=== PATIENT | female | born 1955 | race Caucasian/White ===

== ENCOUNTER → 2016-12-17 | Outpatient (CLI) | payer OTHER ==
[2016-12-17 11:55] LABS: Basophils % (A) 1 %; CH 31.4; CHCM 33.5; Eosinophils # (A) 0.1 k/uL (0-0.7); Eosinophils % (A) 1 %; HCT 38.9 % (34.0-46.0); HDW 2.53; HGB 13.3 gm/dL (11.4-16.0); Luc # (Auto) 0.08; Luc % (Auto) 2; Lymphocytes # (A) 1.1 k/uL (1.0-4.8); Lymphocytes % (A) 21 %; MCH 32.1 pg (25.0-35.0); MCHC 34.1 g/dL (31.0-37.0); MCV 93.9 fL (80.0-100.0); Mean Platelet Volume 6.9; Monocytes # (A) 0.3 k/uL (0-1.0); Monocytes % (A) 5 %; Neutrophils # (A) 3.9 k/uL (1.3-7.7); Neutrophils % (A) 71 %; RBC 4.15 m/uL (3.80-5.40); RDW 12.8 % (11.5-15.5); WBC 5.4 k/uL (3.8-10.6); WBC (Perox) 5.54
== END | disposition home or self-care (01) ==
LOC: LABWHC1 11:04
PROVIDERS: ATTEND Psychiatry & Neurology Neurology
DX: G40.209 Localization-related (focal) (partial) symptomatic epilepsy and epileptic syndromes with complex partial seizures, not intractable, without status epilepticus (principal)
CPT/HCPCS: 36415; 80164; 80185; 84450; 84460; 85025

== ENCOUNTER 2017-04-29 09:58 | Emergency (ER) | payer OTHER ==
[2017-04-29 10:08] VITALS: RESP 18
[2017-04-29] MEDS ORDERED: CEPHALEXIN 500 MG CAP PO STA (10:23)
[2017-04-29] MEDS ORDERED: SULFAMETHOX-TMP 800-160MG 1 EACH TAB PO STA (10:23)
[2017-04-29] MEDS ORDERED: IBUPROFEN 400 MG TAB PO STA (10:24)
--- NOTE | 2017-04-29 10:51 | XR ---
EXAMINATION TYPE: XR hand complete RT DATE OF EXAM: 04/29/2017 CLINICAL HISTORY: Pain with itching and rash for one day worse over fifth finger. TECHNIQUE: Frontal, lateral and oblique images of the right hand are obtained. COMPARISON: None. FINDINGS: Osseous structures are demineralized. There is no acute fracture/dislocation evident in th e right hand. The joint spaces in the right hand appear within normal limits. No suspicious cortical destruction or periosteal reaction is seen. The overlying soft tissue appears unremarkable. IMPRESSION: Demineralization otherwise unremarkable study.
--- NOTE | 2017-04-29 11:12 | ED ---
Extremity Problem HPI - General Chief complaint: Extremity Problem,Nontraumatic Stated complaint: HAND SWELLING, FEET SWELLING Time Seen by Provider: 04/29/17 10:11 Source: patient Mode of arrival: ambulatory Limitations: no limitations - History of Present Illness Initial comments: Patient complains of some redness and swelling to the right hand. She denies any specific injuries. She denies injection drug abuse. She denies any recent long plane or cards. Her symptoms have gotten worse for couple days. She is not sure if she got bit by something or perhaps scratched her hand. She has no numbness or tingling in the hand. She has no weakness of the hand. She has no lightheadedness or dizziness. She has no belly pain, back pain, chest pain, shortness of breath. She has no trouble walking. She is eating and drinking normally. She has taken no medication for the hand pain. The pain does not radiate anywhere. - Related Data Home Medications Medication Instructions Recorded Confirmed Divalproex [Depakote] 500 mg PO TID 06/01/14 04/29/17 PHENobarbital [Luminal] 32.4 mg PO HS 06/01/14 04/29/17 Phenytoin Sodium Extended 100 mg PO TID 06/01/14 04/29/17 [Dilantin] Acetaminophen Tab [Tylenol Tab] 500 mg PO Q6H PRN 04/29/17 04/29/17 Albuterol Inhaler [Ventolin Hfa 2 puff INHALATION RT-Q6H PRN 04/29/17 04/29/17 Inhaler] Previous Rx's Medication Instructions Recorded Cephalexin [Keflex] 500 mg PO Q6HR #40 cap 04/29/17 Sulfamethox-Tmp 800-160Mg [Bactrim 2 tab PO Q12HR #40 tab 04/29/17 DS 800-160 mg] Allergies Allergy/AdvReac Type Severity Reaction Status Date / Time blue dye Allergy Unknown Verified 04/29/17 10:16 latex Allergy Rash/Hives Verified 04/29/17 10:16 red dye Allergy Unknown Verified 04/29/17 10:16 codeine AdvReac Hallucinati Verified 04/29/17 10:16 ons Review of Systems ROS Statement: Those systems with pertinent positive or pertinent negative responses have been documented in the HPI. ROS Other: All systems not noted in ROS Statement are negative. Past Medical History Past Medical History: Seizure Disorder History of Any Multi-Drug Resistant Organisms: None Reported Past Surgical History: No Surgical Hx Reported Past Psychological History: No Psychological Hx Reported Smoking Status: Current every day smoker Past Alcohol Use History: None Reported Past Drug Use History: None Reported General Exam Limitations: no limitations General appearance: alert, in no apparent distress Skin exam: Present: other (Slight erythema to the right hand) Course Vital Signs 04/29/17 10:05 Temperature 97.1 F L Pulse Rate 67 Respiratory 18 Rate Blood Pressure 116/66 O2 Sat by Pulse 98 Oximetry Medical Decision Making - Medical Decision Making Patient presents with redness and swelling of the right hand. She has no anatomical snuffbox tenderness. She denies specific injuries. I did obtain x- rays, which are negative per radiology. Patient has no pain or swelling in the rest of her extremity. There is nothing to suggest a DVT. Her vital signs are within acceptable limits. I do not believe she is septic. She has minor area of erythema. I gave her 2 tablets of Bactrim DS and 500 mg Keflex by mouth. I gave her 800 mg by mouth Motrin for the discomfort. Patient is feeling better. I do not believe she requires admission to the hospital for this or further workup. She is appropriate for outpatient antibiotic therapy. I advised her to return to the emerge department immediately if her symptoms have not improved within one day, or if she notices any worsening of her symptoms at any time, or if she develops any other problems or complaints. Disposition Clinical Impression: Cellulitis Disposition: HOME SELF-CARE Condition: Good Instructions: Cellulitis (ED) Prescriptions: Cephalexin [Keflex] 500 mg PO Q6HR #40 cap Sulfamethox-Tmp 800-160Mg [Bactrim DS 800-160 mg] 2 tab PO Q12HR #40 tab Referrals: Laz Bowles MD [Primary Care Provider] - 1-2 days
[2017-04-29 11:22] VITALS: BP 110/68; PULSE 68; TEMP 97.2
== END 2017-04-29 11:20 | disposition home or self-care (01) ==
LOC: EC 09:58
DX: L03.113 Cellulitis of right upper limb (principal); G40.909 Epilepsy, unspecified, not intractable, without status epilepticus; F17.200 Nicotine dependence, unspecified, uncomplicated; Z88.5 Allergy status to narcotic agent; Z91.040 Latex allergy status; Z91.09 Other allergy status, other than to drugs and biological substances; Z79.899 Other long term (current) drug therapy
CPT/HCPCS: 99283 ×3; 96374; 96375; 36415; 80048; 80185; 85025; 85610; 85730; 80184; 73130; J1200; J2930

== ENCOUNTER 2017-04-29 18:07 | Emergency (ER) | payer OTHER ==
[2017-04-29 18:26] VITALS: BP 113/57; PULSE 64; RESP 18; TEMP 98.6
[2017-04-29] MEDS ORDERED: diphenhydrAMINE 50 MG/ML 1 ML VIAL IVP STA (18:47)
[2017-04-29] MEDS ORDERED: methylPREDNISolone SOD SUCCI 125 MG/2 ML VIAL IV STA (18:47)
[2017-04-29] MEDS ORDERED: FAMOTIDINE 20 MG/2 ML VIAL IV STA (18:47)
[2017-04-29 19:08] LABS: Basophils % (A) 0 %; CH 32.1; CHCM 34.1; Eosinophils # (A) 0.2 k/uL (0-0.7); Eosinophils % (A) 5 %; HCT 39.9 % (34.0-46.0); HDW 2.46; HGB 13.9 gm/dL (11.4-16.0); Luc # (Auto) 0.07; Luc % (Auto) 2; Lymphocytes # (A) 1.3 k/uL (1.0-4.8); Lymphocytes % (A) 37 %; MCV 94.5 fL (80.0-100.0); Mean Platelet Volume 7.2; Monocytes # (A) 0.1 k/uL (0-1.0); Monocytes % (A) 2 %; Neutrophils # (A) 1.8 k/uL (1.3-7.7); Neutrophils % (A) 54 %; RBC 4.22 m/uL (3.80-5.40); RDW 13.4 % (11.5-15.5); WBC 3.4 k/uL (3.8-10.6); WBC (Perox) 3.45
--- NOTE | 2017-04-29 19:09 | ED ---
General Adult HPI - General Chief complaint: Allergic Reaction Stated complaint: POSS ALLERGIC REACTION Time Seen by Provider: 04/29/17 18:29 Source: patient, RN notes reviewed Mode of arrival: ambulatory Limitations: no limitations - History of Present Illness Initial comments: 61-year-old female presents emergency Department chief complaint worsening rash or lower legs. Patient states that she was here earlier discharged on Bactrim and Keflex for possible cellulitis to her right hand should right hand swelling. She states she had only a few spots on her legs. Patient states that she now has diffuse red spots have progressively worsened last few hours. She states they do itch. Patient states that she's been having right-sided past. She has no known autoimmune disease. He states she's never had any history of ITP. Patient denies fever, chills. Denies any new soaps or lotions or detergents. - Related Data Home Medications Medication Instructions Recorded Confirmed Divalproex [Depakote] 500 mg PO TID 06/01/14 04/29/17 PHENobarbital [Luminal] 32.4 mg PO HS 06/01/14 04/29/17 Phenytoin Sodium Extended 100 mg PO TID 06/01/14 04/29/17 [Dilantin] Acetaminophen Tab [Tylenol Tab] 500 mg PO Q6H PRN 04/29/17 04/29/17 Albuterol Inhaler [Ventolin Hfa 2 puff INHALATION RT-Q6H PRN 04/29/17 04/29/17 Inhaler] Previous Rx's Medication Instructions Recorded Cephalexin [Keflex] 500 mg PO Q6HR #40 cap 04/29/17 Clindamycin HCl 300 mg PO Q6HR #40 cap 04/29/17 Sulfamethox-Tmp 800-160Mg [Bactrim 2 tab PO Q12HR #40 tab 04/29/17 DS 800-160 mg] predniSONE 50 mg PO DAILY #5 tab 04/29/17 Allergies Allergy/AdvReac Type Severity Reaction Status Date / Time blue dye Allergy Unknown Verified 04/29/17 10:16 latex Allergy Rash/Hives Verified 04/29/17 10:16 red dye Allergy Unknown Verified 04/29/17 10:16 codeine AdvReac Hallucinati Verified 04/29/17 10:16 ons Review of Systems ROS Statement: Those systems with pertinent positive or pertinent negative responses have been documented in the HPI. ROS Other: All systems not noted in ROS Statement are negative. Past Medical History Past Medical History: Seizure Disorder History of Any Multi-Drug Resistant Organisms: None Reported Past Surgical History: No Surgical Hx Reported Past Psychological History: No Psychological Hx Reported Smoking Status: Current every day smoker Past Alcohol Use History: None Reported Past Drug Use History: None Reported General Exam Limitations: no limitations General appearance: alert, in no apparent distress Respiratory exam: Present: normal lung sounds bilaterally. Absent: respiratory distress, wheezes, rales, rhonchi, stridor Cardiovascular Exam: Present: regular rate, normal rhythm, normal heart sounds. Absent: systolic murmur, diastolic murmur, rubs, gallop, clicks Neurological exam: Present: alert, oriented X3, CN II-XII intact Skin exam: Present: warm, dry, intact, normal color, rash (Diffuse petechial type rash with erythema of her lower legs bilaterally nontender pulses equal bilaterally) Course Vital Signs 04/29/17 18:24 Temperature 98.6 F Pulse Rate 64 Respiratory 18 Rate Blood Pressure 113/57 O2 Sat by Pulse 97 Oximetry Medical Decision Making - Medical Decision Making 61-year-old female presented for recheck of her leg rash. The rash has worsened up with Dr. Hugo greer and evaluated the patient in which she saw this patient earlier in the day. Patient may be having some sort of ALLERGIC reaction with possible vasculitis type rash. Patient be placed on prednisone and switched to clindamycin. Return parameters were discussed. - Lab Data Result diagrams: 04/29/17 18:35 04/29/17 18:35 Lab Results 04/29/17 04/29/17 04/29/17 Range/Units 18:35 18:35 18:35 WBC 3.4 L (3.8-10.6) k/uL RBC 4.22 (3.80-5.40) m/uL Hgb 13.9 (11.4-16.0) gm/dL Hct 39.9 (34.0-46.0) % MCV 94.5 (80.0-100.0) fL MCH 33.0 (25.0-35.0) pg MCHC 35.0 (31.0-37.0) g/dL RDW 13.4 (11.5-15.5) % Plt Count 158 (150-450) k/uL Neutrophils % 54 % Lymphocytes % 37 % Monocytes % 2 % Eosinophils % 5 % Basophils % 0 % Neutrophils # 1.8 (1.3-7.7) k/uL Lymphocytes # 1.3 (1.0-4.8) k/uL Monocytes # 0.1 (0-1.0) k/uL Eosinophils # 0.2 (0-0.7) k/uL Basophils # 0.0 (0-0.2) k/uL PT 11.3 (9.0-12.0) sec INR 1.1 (<1.2) APTT 29.8 (22.0-30.0) sec Sodium 142 (137-145) mmol/L Potassium 4.5 (3.5-5.1) mmol/L Chloride 109 H (98-107) mmol/L Carbon Dioxide 23 (22-30) mmol/L Anion Gap 10 mmol/L BUN 22 H (7-17) mg/dL Creatinine 0.81 (0.52-1.04) mg/dL Est GFR (MDRD) Af Amer >60 (>60 ml/min/1.73 sqM) Est GFR (MDRD) Non-Af >60 (>60 ml/min/1.73 sqM) Glucose 72 L (74-99) mg/dL Calcium 8.9 (8.4-10.2) mg/dL Disposition Clinical Impression: Petechial rash, Medication reaction Disposition: HOME SELF-CARE Condition: Stable Instructions: Acute Rash (ED) Additional Instructions: Please return to the Emergency Department if symptoms worsen or any other concerns. Prescriptions: Clindamycin HCl 300 mg PO Q6HR #40 cap predniSONE 50 mg PO DAILY #5 tab Referrals: Laz Bowles MD [Primary Care Provider] - 1-2 days Time of Disposition: 20:24
[2017-04-29 19:21] LABS: INR 1.1 (<1.2); Partial Thromboplastin Time 29.8 sec (22.0-30.0); Prothrombin Time 11.3 sec (9.0-12.0)
[2017-04-29 19:23] LABS: Anion Gap 10 mmol/L; Blood Urea Nitrogen 22 mg/dL (7-17); Calcium 8.9 mg/dL (8.4-10.2); Carbon Dioxide 23 mmol/L (22-30); Chloride 109 mmol/L (98-107); Glucose 72 mg/dL (74-99); Non-African American GFR(MDRD) >60 (>60 ml/min/1.73 sqM); Potassium 4.5 mmol/L (3.5-5.1); Sodium 142 mmol/L (137-145)
== END 2017-04-29 20:35 | disposition home or self-care (01) ==
LOC: EC 18:07
DX: R21 Rash and other nonspecific skin eruption (principal); T37.0X1A Poisoning by sulfonamides, accidental (unintentional), initial encounter; T36.1X1A Poisoning by cephalosporins and other beta-lactam antibiotics, accidental (unintentional), initial encounter; G40.909 Epilepsy, unspecified, not intractable, without status epilepticus; F17.200 Nicotine dependence, unspecified, uncomplicated; Z79.899 Other long term (current) drug therapy; Z88.5 Allergy status to narcotic agent; Z91.040 Latex allergy status; Z91.09 Other allergy status, other than to drugs and biological substances
CPT/HCPCS: 36415; 80048; 80185; 85025; 85610; 85730; 80184; 99283; 96374; 96375 ×2; J1200; J2930

== ENCOUNTER → 2017-05-03 | Outpatient (CLI) | payer OTHER ==
[2017-05-03 15:03] LABS: Basophils % (A) 0 %; CHCM 33.7; Eosinophils # (A) 0.1 k/uL (0-0.7); Eosinophils % (A) 1 %; HCT 39.4 % (34.0-46.0); HDW 2.47; HGB 13.5 gm/dL (11.4-16.0); Luc # (Auto) 0.07; Luc % (Auto) 1; Lymphocytes # (A) 1.5 k/uL (1.0-4.8); Lymphocytes % (A) 31 %; MCH 32.6 pg (25.0-35.0); MCHC 34.2 g/dL (31.0-37.0); MCV 95.3 fL (80.0-100.0); Monocytes # (A) 0.2 k/uL (0-1.0); Monocytes % (A) 5 %; Neutrophils % (A) 62 %; RBC 4.13 m/uL (3.80-5.40); WBC 4.8 k/uL (3.8-10.6); WBC (Perox) 4.86
[2017-05-03 15:09] LABS: Appearance,Urine Clear (Clear); Bacteria,Urine Rare /hpf; Bilirubin,Urine Negative (Negative); Glucose,Urine (UA) Negative (Negative); Ketones,Urine Negative (Negative); Leukocyte Esterase,Urine Large (Negative); Mucus,Urine Rare /hpf; Nitrite,Urine Negative (Negative); PH, Urine 6.5 (5.0-8.0); Particle Count 3304; Protein,Urine Negative (Negative); RBC,Urine 2 /hpf (0-5); Squamous Epithelial Cell,Urine 1 /hpf (0-4); UA Billing (MACRO vs. MICRO) MICRO; Urobilinogen,Urine <2.0 mg/dL (<2.0); WBC,Urine 16 /hpf (0-5)
[2017-05-05 18:38] LABS: ANA w/Reflex to Titer POSITIVE (NEGATIVE)
== END | disposition home or self-care (01) ==
LOC: LABWHC1 14:12
PROVIDERS: ATTEND Physician Assistant Medical
DX: L95.8 Other vasculitis limited to the skin (principal)
CPT/HCPCS: 36415; 81001; 85025; 86038; 86235; 86431

== ENCOUNTER → 2017-05-13 | Outpatient (CLI) | payer OTHER ==
[2017-05-13 09:32] LABS: Basophils % (A) 0 %; CH 33.1; CHCM 33.6; Eosinophils # (A) 0.1 k/uL (0-0.7); Eosinophils % (A) 1 %; HCT 44.1 % (34.0-46.0); HDW 2.44; HGB 14.6 gm/dL (11.4-16.0); Luc # (Auto) 0.07; Luc % (Auto) 1; Lymphocytes # (A) 1.8 k/uL (1.0-4.8); Lymphocytes % (A) 30 %; MCH 32.7 pg (25.0-35.0); MCV 99.1 fL (80.0-100.0); Macrocytosis Slight; Mean Platelet Volume 7.4; Monocytes # (A) 0.3 k/uL (0-1.0); Monocytes % (A) 5 %; Neutrophils # (A) 3.8 k/uL (1.3-7.7); Neutrophils % (A) 63 %; RBC 4.45 m/uL (3.80-5.40); RDW 14.8 % (11.5-15.5); WBC (Perox) 6.26
== END | disposition home or self-care (01) ==
LOC: LABWHC1 08:37
PROVIDERS: ATTEND Psychiatry & Neurology Neurology
DX: G40.209 Localization-related (focal) (partial) symptomatic epilepsy and epileptic syndromes with complex partial seizures, not intractable, without status epilepticus (principal)
CPT/HCPCS: 36415; 80164; 80184; 80185; 84450; 84460; 85025

== ENCOUNTER 2017-06-24 14:31 | Inpatient (IN) | payer OTHER ==
[2017-06-24] MEDS ORDERED: MORPHINE SULFATE 10 MG/ML SYRINGE IV STA (14:54)
[2017-06-24] MEDS ORDERED: SODIUM CHLORIDE 0.9% 1,000 ML IV STA ×2 (14:54)
--- NOTE | 2017-06-24 15:08 | ED ---
General Adult HPI - General Chief complaint: Chest Pain Stated complaint: chest pain Time Seen by Provider: 06/24/17 14:44 Source: patient, RN notes reviewed, old records reviewed Mode of arrival: wheelchair Limitations: no limitations - History of Present Illness Initial comments: This is a 61-year-old female to the ER for evaluation. Patient is regarding chest pain abdominal pain. Patient has no history of heart disease. No history of surgical issues with her belly. No fevers mild nausea no vomiting. Patient states pain is severe has been progressing. Denies any cough or congestion. No recent travel history. Symptoms are worse when she moves or touches her belly - Related Data Home Medications Medication Instructions Recorded Confirmed Divalproex [Depakote] 500 mg PO TID 06/01/14 06/24/17 PHENobarbital [Luminal] 32.4 mg PO HS 06/01/14 06/24/17 Phenytoin Sodium Extended 100 mg PO TID 06/01/14 06/24/17 [Dilantin] Acetaminophen Tab [Tylenol Tab] 500 mg PO BID PRN 04/29/17 06/24/17 Albuterol Inhaler [Ventolin Hfa 2 puff INHALATION RT-Q6H PRN 04/29/17 06/24/17 Inhaler] Levofloxacin [Levaquin] 500 mg PO DAILY 06/24/17 06/24/17 predniSONE 10 mg PO BID 06/24/17 06/24/17 Allergies Allergy/AdvReac Type Severity Reaction Status Date / Time blue dye Allergy Unknown Verified 06/24/17 15:19 latex Allergy Rash/Hives Verified 06/24/17 15:19 red dye Allergy Unknown Verified 06/24/17 15:19 codeine AdvReac Hallucinati Verified 06/24/17 15:19 ons Review of Systems ROS Statement: Those systems with pertinent positive or pertinent negative responses have been documented in the HPI. ROS Other: All systems not noted in ROS Statement are negative. Past Medical History Past Medical History: Seizure Disorder History of Any Multi-Drug Resistant Organisms: None Reported Past Surgical History: No Surgical Hx Reported Additional Past Surgical History / Comment(s): FLUID REMOVED FROM HEART Past Psychological History: No Psychological Hx Reported Smoking Status: Current every day smoker Past Alcohol Use History: None Reported Past Drug Use History: None Reported General Exam Limitations: no limitations General appearance: alert, in no apparent distress, cachectic Head exam: Present: atraumatic, normocephalic, normal inspection Eye exam: Present: normal appearance, PERRL, EOMI. Absent: scleral icterus, conjunctival injection, periorbital swelling ENT exam: Present: normal exam, mucous membranes moist Neck exam: Present: normal inspection. Absent: tenderness, meningismus, lymphadenopathy Respiratory exam: Present: normal lung sounds bilaterally. Absent: respiratory distress, wheezes, rales, rhonchi, stridor Cardiovascular Exam: Present: regular rate, normal rhythm, normal heart sounds. Absent: systolic murmur, diastolic murmur, rubs, gallop, clicks GI/Abdominal exam: Present: soft, tenderness, guarding, normal bowel sounds. Absent: distended, rebound, rigid Extremities exam: Present: normal inspection, full ROM, normal capillary refill. Absent: tenderness, pedal edema, joint swelling, calf tenderness Back exam: Present: normal inspection Neurological exam: Present: alert, oriented X3, CN II-XII intact Psychiatric exam: Present: normal affect, normal mood Skin exam: Present: warm, dry, intact, normal color. 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 Positive colicystitis on ultrasound. Patient also with complaints of chest pain. Patient be admitted for surgical evaluation - Lab Data Result diagrams: 06/24/17 14:45 06/24/17 14:45 Lab Results 06/24/17 06/24/17 06/24/17 Range/Units 14:45 14:45 14:45 WBC 2.1 L (3.8-10.6) k/uL RBC 4.23 (3.80-5.40) m/uL Hgb 13.8 (11.4-16.0) gm/dL Hct 41.3 (34.0-46.0) % MCV 97.6 (80.0-100.0) fL MCH 32.7 (25.0-35.0) pg MCHC 33.5 (31.0-37.0) g/dL RDW 14.6 (11.5-15.5) % Plt Count 87 L (150-450) k/uL Neutrophils % 58 % Lymphocytes % 33 % Monocytes % 5 % Eosinophils % 0 % Basophils % 1 % Neutrophils # 1.2 L (1.3-7.7) k/uL Lymphocytes # 0.7 L (1.0-4.8) k/uL Monocytes # 0.1 (0-1.0) k/uL Eosinophils # 0.0 (0-0.7) k/uL Basophils # 0.0 (0-0.2) k/uL PT (9.0-12.0) sec INR (<1.2) APTT (22.0-30.0) sec Sodium 139 (137-145) mmol/L Potassium 4.1 (3.5-5.1) mmol/L Chloride 105 (98-107) mmol/L Carbon Dioxide 24 (22-30) mmol/L Anion Gap 10 mmol/L BUN 12 (7-17) mg/dL Creatinine 0.60 (0.52-1.04) mg/dL Est GFR (MDRD) Af Amer >60 (>60 ml/min/1.73 sqM) Est GFR (MDRD) Non-Af >60 (>60 ml/min/1.73 sqM) Glucose 87 (74-99) mg/dL Calcium 8.4 (8.4-10.2) mg/dL Magnesium 2.0 (1.6-2.3) mg/dL Total Bilirubin 0.2 (0.2-1.3) mg/dL AST 31 (14-36) U/L ALT 26 (9-52) U/L Alkaline Phosphatase 67 (38-126) U/L Total Creatine Kinase 66 (30-135) U/L CK-MB (CK-2) 0.6 (0.0-2.4) ng/mL CK-MB (CK-2) Rel Index 0.9 Troponin I <0.012 (0.000-0.034) ng/mL Total Protein 6.9 (6.3-8.2) g/dL Albumin 3.5 (3.5-5.0) g/dL Lipase 68 (23-300) U/L 06/24/17 Range/Units 14:45 WBC (3.8-10.6) k/uL RBC (3.80-5.40) m/uL Hgb (11.4-16.0) gm/dL Hct (34.0-46.0) % MCV (80.0-100.0) fL MCH (25.0-35.0) pg MCHC (31.0-37.0) g/dL RDW (11.5-15.5) % Plt Count (150-450) k/uL Neutrophils % % Lymphocytes % % Monocytes % % Eosinophils % % Basophils % % Neutrophils # (1.3-7.7) k/uL Lymphocytes # (1.0-4.8) k/uL Monocytes # (0-1.0) k/uL Eosinophils # (0-0.7) k/uL Basophils # (0-0.2) k/uL PT 10.3 (9.0-12.0) sec INR 1.0 (<1.2) APTT 33.3 H (22.0-30.0) sec Sodium (137-145) mmol/L Potassium (3.5-5.1) mmol/L Chloride (98-107) mmol/L Carbon Dioxide (22-30) mmol/L Anion Gap mmol/L BUN (7-17) mg/dL Creatinine (0.52-1.04) mg/dL Est GFR (MDRD) Af Amer (>60 ml/min/1.73 sqM) Est GFR (MDRD) Non-Af (>60 ml/min/1.73 sqM) Glucose (74-99) mg/dL Calcium (8.4-10.2) mg/dL Magnesium (1.6-2.3) mg/dL Total Bilirubin (0.2-1.3) mg/dL AST (14-36) U/L ALT (9-52) U/L Alkaline Phosphatase (38-126) U/L Total Creatine Kinase (30-135) U/L CK-MB (CK-2) (0.0-2.4) ng/mL CK-MB (CK-2) Rel Index Troponin I (0.000-0.034) ng/mL Total Protein (6.3-8.2) g/dL Albumin (3.5-5.0) g/dL Lipase (23-300) U/L - Radiology Data Radiology results: report reviewed (Ultrasound gallbladder positive colicystitis , chest x-ray negative), image reviewed Disposition Clinical Impression: Chest pain, Acute cholecystitis Disposition: ADMITTED IP TO THIS HOSP Condition: Good Instructions: Chest Pain (ED) Referrals: Laz Bowles MD [Primary Care Provider] - 1-2 days
[2017-06-24 15:12] LABS: Basophils % (A) 1 %; CH 31.9; CHCM 32.9; Eosinophils % (A) 0 %; HCT 41.3 % (34.0-46.0); HDW 2.51; HGB 13.8 gm/dL (11.4-16.0); Luc # (Auto) 0.06; Luc % (Auto) 3; Lymphocytes # (A) 0.7 k/uL (1.0-4.8); Lymphocytes % (A) 33 %; MCH 32.7 pg (25.0-35.0); MCHC 33.5 g/dL (31.0-37.0); MCV 97.6 fL (80.0-100.0); Mean Platelet Volume 8.3; Monocytes # (A) 0.1 k/uL (0-1.0); Monocytes % (A) 5 %; Neutrophils # (A) 1.2 k/uL (1.3-7.7); Neutrophils % (A) 58 %; RBC 4.23 m/uL (3.80-5.40); RDW 14.6 % (11.5-15.5); WBC 2.1 k/uL (3.8-10.6); WBC (Perox) 2.35
[2017-06-24 15:24] LABS: ALT 26 U/L (9-52); AST 31 U/L (14-36); Alkaline Phosphatase 67 U/L (38-126); Anion Gap 10 mmol/L; Blood Urea Nitrogen 12 mg/dL (7-17); Calcium 8.4 mg/dL (8.4-10.2); Carbon Dioxide 24 mmol/L (22-30); Chloride 105 mmol/L (98-107); Glucose 87 mg/dL (74-99); Non-African American GFR(MDRD) >60 (>60 ml/min/1.73 sqM); Potassium 4.1 mmol/L (3.5-5.1); Sodium 139 mmol/L (137-145); Total Bilirubin 0.2 mg/dL (0.2-1.3); Total Protein 6.9 g/dL (6.3-8.2)
[2017-06-24 15:25] LABS: Creatine Kinase 66 U/L (30-135); Partial Thromboplastin Time 33.3 sec (22.0-30.0); Prothrombin Time 10.3 sec (9.0-12.0)
[2017-06-24 15:38] LABS: Creatine Kinase MB 0.6 ng/mL (0.0-2.4); Troponin I <0.012 ng/mL (0.000-0.034)
--- NOTE | 2017-06-24 15:47 | US ---
EXAMINATION TYPE: US gallbladder DATE OF EXAM: 06/24/2017 COMPARISON: NONE CLINICAL HISTORY: Pain. EXAM MEASUREMENTS: Liver Length: 0.4 cm Gallbladder Wall: 0.4 cm CBD: 0.4 cm Right Kidney: 11.6 x 3.7 x 5.3 cm Pancreas: wnl Liver: wnl Gallbladder: Echogenic luminal focus with shadowing compatible with cholelithiasis, there is borderl ine gallbladder wall thickening Evidence for sonographic Virgen's sign: difficult to ascertain, patient in pain throughout test CBD: wnl Right Kidney: No hydronephrosis or masses seen and the cortical medullary differentiation is maintai tierney There is no ascites. IMPRESSION: Cholelithiasis, correlate to exclude cholecystitis
[2017-06-24] MEDS ORDERED: MORPHINE SULFATE 10 MG/ML SYRINGE IV PRN (16:03)
[2017-06-24] MEDS ORDERED: ASPIRIN 81 MG PO STA (16:03)
[2017-06-24] MEDS ORDERED: NITROGLYCERIN SL TABS 0.4 MG TAB SUBLINGUAL PRN (16:03)
[2017-06-24] MEDS ORDERED: AMPICILLIN-SULBACTAM 3 GM in SODIUM CHLORIDE 0.9% 100 ML IVPB STA (16:08)
--- NOTE | 2017-06-24 16:14 | XR ---
EXAMINATION TYPE: XR chest 2V DATE OF EXAM: 06/24/2017 COMPARISON: CT chest 11/19/2015 HISTORY: Chest pain and fever TECHNIQUE: Frontal and lateral views of the chest are obtained. FINDINGS: There is no focal air space opacity, pleural effusion, or pneumothorax seen. The cardiac silhouette size is within normal limits. Hyperinflation compatible with underlying emphysema. Patient is rotated, there may be underlying scoliosis. There are overlying cardiac leads. Biapical pleural t hickening is noted. There is pectus deformity. The osseous structures are intact. IMPRESSION: No acute cardiopulmonary process.
[2017-06-24 20:59] LABS: Creatine Kinase 49 U/L (30-135)
[2017-06-24 21:13] LABS: Creatine Kinase MB 0.4 ng/mL (0.0-2.4); Troponin I <0.012 ng/mL (0.000-0.034)
[2017-06-24] MEDS: predniSONE 10 MG TAB PO SCH (21:26)
[2017-06-24] MEDS: DIVALPROEX 500 MG TABLET.DR PO SCH (21:27)
[2017-06-24] MEDS: PHENYTOIN SODIUM EXTENDED 100 MG CAP PO SCH (21:27)
[2017-06-24] MEDS: PHENobarbital 32.4 MG TAB PO SCH (21:27)
[2017-06-24] MEDS: AMPICILLIN-SULBACTAM 3 GM in SODIUM CHLORIDE 0.9% 100 ML IVPB SCH (22:58)
[2017-06-25] MEDS ORDERED: ACETAMINOPHEN TAB 500 MG TAB PO PRN (01:11)
[2017-06-25 04:12] LABS: Cholesterol 117 mg/dL (<200); HDL Cholesterol 36 mg/dL (40-60)
[2017-06-25 04:24] LABS: Creatine Kinase 49 U/L (30-135)
[2017-06-25 04:38] LABS: Creatine Kinase MB 0.4 ng/mL (0.0-2.4); Troponin I <0.012 ng/mL (0.000-0.034)
[2017-06-25] MEDS: AMPICILLIN-SULBACTAM 3 GM in SODIUM CHLORIDE 0.9% 100 ML IVPB SCH ×4 (06:19→17:45)
[2017-06-25 06:41] LABS: ALT 27 U/L (9-52); AST 20 U/L (14-36); Alkaline Phosphatase 49 U/L (38-126); Anion Gap 4 mmol/L; Blood Urea Nitrogen 12 mg/dL (7-17); Calcium 7.8 mg/dL (8.4-10.2); Carbon Dioxide 25 mmol/L (22-30); Chloride 109 mmol/L (98-107); Glucose 87 mg/dL (74-99); Non-African American GFR(MDRD) >60 (>60 ml/min/1.73 sqM); Potassium 4.4 mmol/L (3.5-5.1); Sodium 138 mmol/L (137-145); Total Bilirubin 0.1 mg/dL (0.2-1.3); Total Protein 5.4 g/dL (6.3-8.2)
[2017-06-25 07:20] LABS: Basophils % (A) 1 %; CHCM 31.7; Eosinophils % (A) 1 %; HCT 37.6 % (34.0-46.0); HDW 2.43; Luc # (Auto) 0.07; Luc % (Auto) 3; Lymphocytes # (A) 0.8 k/uL (1.0-4.8); Lymphocytes % (A) 40 %; MCH 32.4 pg (25.0-35.0); MCHC 31.9 g/dL (31.0-37.0); MCV 101.5 fL (80.0-100.0); Macrocytosis Slight; Monocytes # (A) 0.1 k/uL (0-1.0); Monocytes % (A) 5 %; Neutrophils % (A) 50 %; RBC 3.71 m/uL (3.80-5.40); RDW 14.2 % (11.5-15.5); WBC 2.1 k/uL (3.8-10.6)
[2017-06-25 07:29] LABS: Mean Platelet Volume 7.3
[2017-06-25] MEDS: ASPIRIN 325 MG TAB PO SCH (08:34)
[2017-06-25] MEDS: DIVALPROEX 500 MG TABLET.DR PO SCH ×3 (08:34→21:46)
[2017-06-25] MEDS: PHENYTOIN SODIUM EXTENDED 100 MG CAP PO SCH ×3 (08:34→21:46)
[2017-06-25] MEDS: predniSONE 10 MG TAB PO SCH ×2 (08:34→21:46)
[2017-06-25] MEDS ORDERED: METOCLOPRAMIDE 5 MG/ML 2 ML VIAL IVP STA (10:03)
[2017-06-25 11:11] VITALS: BMI 19.6
--- NOTE | 2017-06-25 14:24 | P.GSHP ---
History of Present Illness H&P Date: 06/25/17 Chief Complaint: Right upper quadrant pain This is a 61-year-old female who was admitted to the hospital with right quadrant pain. Her recent ultrasound shows evidence of cholelithiasis. Describes crampy pain which radiated to her back. 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 History of Any Multi-Drug Resistant Organisms: None Reported Past Surgical History: No Surgical Hx Reported Additional Past Surgical History / Comment(s): "FLUID REMOVED FROM HEART and lungs/chest tubes/thoracentesis" Past Anesthesia/Blood Transfusion Reactions: No Reported Reaction Smoking Status: Former smoker - Past Family History Mother Family Medical History: Myocardial Infarction ([place]) Father Family Medical History: Cancer Additional Family Medical History / Comment(s): lung cancer Medications and Allergies Home Medications Medication Instructions Recorded Confirmed Type Divalproex [Depakote] 500 mg PO TID 06/01/14 06/24/17 History PHENobarbital [Luminal] 32.4 mg PO HS 06/01/14 06/24/17 History Phenytoin Sodium Extended 100 mg PO TID 06/01/14 06/24/17 History [Dilantin] Acetaminophen Tab [Tylenol Tab] 500 mg PO BID PRN 04/29/17 06/24/17 History Albuterol Inhaler [Ventolin Hfa 2 puff INHALATION RT-Q6H PRN 04/29/17 06/24/17 History Inhaler] Levofloxacin [Levaquin] 500 mg PO DAILY 06/24/17 06/24/17 History predniSONE 10 mg PO BID 06/24/17 06/24/17 History Allergies Allergy/AdvReac Type Severity Reaction Status Date / Time blue dye Allergy Unknown Verified 06/24/17 15:19 latex Allergy Rash/Hives Verified 06/24/17 15:19 red dye Allergy Unknown Verified 06/24/17 15:19 codeine AdvReac Hallucinati Verified 06/24/17 15:19 ons Surgical - Exam Vital Signs Temp Pulse Resp BP Pulse Ox 98.3 F 68 18 96/54 98 06/24/17 14:31 06/24/17 14:31 06/24/17 14:31 06/24/17 14:31 06/24/17 14:31 - General well developed, no distress - Eyes PERRL - ENT normal pinna - Neck no masses - Respiratory normal expansion - Cardiovascular Rhythm: regular - Abdomen Mild right upper quadrant tenderness. There is no rebound or guarding. Abdomen: soft Results - Labs 06/25/17 06:06 06/25/17 06:06 Abnormal Lab Results - Last 24 Hours (Table) 06/24/17 06/24/17 06/25/17 Range/Units 14:45 14:45 03:39 WBC 2.1 L (3.8-10.6) k/uL RBC (3.80-5.40) m/uL MCV (80.0-100.0) fL Plt Count 87 L (150-450) k/uL Neutrophils # 1.2 L (1.3-7.7) k/uL Lymphocytes # 0.7 L (1.0-4.8) k/uL APTT 33.3 H (22.0-30.0) sec Chloride (98-107) mmol/L Calcium (8.4-10.2) mg/dL Total Bilirubin (0.2-1.3) mg/dL Total Protein (6.3-8.2) g/dL Albumin (3.5-5.0) g/dL HDL Cholesterol 36 L (40-60) mg/dL 06/25/17 06/25/17 Range/Units 06:06 06:06 WBC 2.1 L (3.8-10.6) k/uL RBC 3.71 L (3.80-5.40) m/uL MCV 101.5 H (80.0-100.0) fL Plt Count 93 L (150-450) k/uL Neutrophils # 1.0 L (1.3-7.7) k/uL Lymphocytes # 0.8 L (1.0-4.8) k/uL APTT (22.0-30.0) sec Chloride 109 H (98-107) mmol/L Calcium 7.8 L (8.4-10.2) mg/dL Total Bilirubin 0.1 L (0.2-1.3) mg/dL Total Protein 5.4 L (6.3-8.2) g/dL Albumin 2.5 L (3.5-5.0) g/dL HDL Cholesterol (40-60) mg/dL Diabetes panel 06/24/17 06/25/17 06/25/17 Range/Units 14:45 03:39 06:06 Sodium 139 138 (137-145) mmol/L Potassium 4.1 4.4 (3.5-5.1) mmol/L Chloride 105 109 H (98-107) mmol/L Carbon Dioxide 24 25 (22-30) mmol/L BUN 12 12 (7-17) mg/dL Creatinine 0.60 0.60 (0.52-1.04) mg/dL Glucose 87 87 (74-99) mg/dL Calcium 8.4 7.8 L (8.4-10.2) mg/dL AST 31 20 (14-36) U/L ALT 26 27 (9-52) U/L Alkaline Phosphatase 67 49 (38-126) U/L Total Protein 6.9 5.4 L (6.3-8.2) g/dL Albumin 3.5 2.5 L (3.5-5.0) g/dL Triglycerides 116 (<150) mg/dL HDL Cholesterol 36 L (40-60) mg/dL Calcium panel 06/24/17 06/25/17 Range/Units 14:45 06:06 Calcium 8.4 7.8 L (8.4-10.2) mg/dL Albumin 3.5 2.5 L (3.5-5.0) g/dL Pituitary panel 06/24/17 06/25/17 Range/Units 14:45 06:06 Sodium 139 138 (137-145) mmol/L Potassium 4.1 4.4 (3.5-5.1) mmol/L Chloride 105 109 H (98-107) mmol/L Carbon Dioxide 24 25 (22-30) mmol/L BUN 12 12 (7-17) mg/dL Creatinine 0.60 0.60 (0.52-1.04) mg/dL Glucose 87 87 (74-99) mg/dL Calcium 8.4 7.8 L (8.4-10.2) mg/dL Adrenal panel 06/24/17 06/25/17 Range/Units 14:45 06:06 Sodium 139 138 (137-145) mmol/L Potassium 4.1 4.4 (3.5-5.1) mmol/L Chloride 105 109 H (98-107) mmol/L Carbon Dioxide 24 25 (22-30) mmol/L BUN 12 12 (7-17) mg/dL Creatinine 0.60 0.60 (0.52-1.04) mg/dL Glucose 87 87 (74-99) mg/dL Calcium 8.4 7.8 L (8.4-10.2) mg/dL Total Bilirubin 0.2 0.1 L (0.2-1.3) mg/dL AST 31 20 (14-36) U/L ALT 26 27 (9-52) U/L Alkaline Phosphatase 67 49 (38-126) U/L Total Protein 6.9 5.4 L (6.3-8.2) g/dL Albumin 3.5 2.5 L (3.5-5.0) g/dL Assessment and Plan Assessment: Symptomatically phthisis, choledocholithiasis, we'll perform laparoscopic cholecystectomy.
[2017-06-25] MEDS ORDERED: IV FLUID CONTINUATION 900 ML IV ONE (14:30)
[2017-06-25] MEDS ORDERED: DEXAMETHASONE SOD PHOS (MDV) 100 MG/10 ML VIAL IVP ONE (14:44)
[2017-06-25] MEDS ORDERED: ONDANSETRON 4 MG/2 ML VIAL IVP ONE (14:45)
[2017-06-25] MEDS ORDERED: HEPARIN SODIUM,PORCINE 5,000 UNIT/ML 1 ML VIAL SQ ONE (14:45)
[2017-06-25] MEDS ORDERED: KETOROLAC 30 MG/ML 1 ML VIAL ONE (15:00)
[2017-06-25] MEDS ORDERED: SUCCINYLCHOLINE CHLORIDE 100 MG/5 ML SYR IV ONE (15:00)
[2017-06-25] MEDS ORDERED: PROPOFOL 10 MG/ML 20 ML VIAL IV ONE (15:00)
[2017-06-25] MEDS ORDERED: GLYCOPYRROLATE 0.2 MG/ML 2 ML VIAL ONE (15:00)
[2017-06-25] MEDS ORDERED: NEOSTIGMINE 1 MG/ML 10 ML VIAL ONE (15:00)
[2017-06-25] MEDS ORDERED: ePHEDrine SULFATE/0.9% NACL/PF 50 MG/5 ML SYRINGE IV ONE (15:00)
[2017-06-25] MEDS ORDERED: fentaNYL (PF) 50 MCG/ML 2 ML AMP ONE (15:00)
[2017-06-25] MEDS ORDERED: ROCURONIUM BROMIDE 10 MG/ML 10 ML VIAL IV ONE (15:00)
[2017-06-25] MEDS ORDERED: LIDOCAINE 1% INJ 10MG/ML (20 ML MDV) ONE (15:00)
[2017-06-25] MEDS ORDERED: MIDAZOLAM 2 MG/2 ML VIAL ONE (15:00)
[2017-06-25] MEDS ORDERED: LIDOCAINE 2%-EPI 1:100,000 20 ML VIAL SQ ONE (15:21)
--- NOTE | 2017-06-25 15:54 | P.OP ---
Date of Procedure: 06/25/17 Preoperative Diagnosis: Cholecystitis I Postoperative Diagnosis: Cholecystitis Cholelithiasis Procedure(s) Performed: Laparoscopic cholecystectomy Anesthesia: AYDEN Surgeon: Juan J Palacios Estimated Blood Loss (ml): 5 Pathology: other (gAll bladder) Condition: stable Disposition: PACU Description of Procedure: The patient was placed on the operating table. The patient received a general endotracheal tube anesthesia. The patients abdomen was prepped and draped in the usual sterile fashion. Through an infraumbilical stab incision, the fascia of the anterior abdominal wall was grasped with a pair of Kochers and then the Veress needle was placed in the peritoneal cavity. Position of the Veress needle was confirmed with positive drop test. The abdomen was then insufflated. After adequate insufflation, the 10 mm trocar was placed in the peritoneal cavity. Following this the laparoscope was placed in the peritoneal cavity. The patient was placed in the head-up, right side up position and then a 5 mm trocar was placed in the right lateral and right subcostal position under direct visualization. A 8 mm trocar was placed in the epigastric position. The gallbladder was grasped in the fundus and infundibulum. Traction on the gallbladder was placed in the lateral and the cephalad positions. The triangle of Calot was visualized.. The cystic duct was bluntly dissected until the union of the cystic duct and common bile duct was seen. The cystic duct was then divided and sealed with the Harmonic scissors. A PDS Endoloop was then placed throughout the cystic duct stump. The cystic artery divided and sealed with the Harmonic scissors. The gallbladder was then removed from the liver bed using Harmonic scissors. The gallbladder was then extracted through the epigastric port site. Operative field was checked for any bleeding spots and Harmonic scissors was used to coagulate the liver bed. The abdomen was irrigated. The trocars were removed. The skin was closed using interrupted 3-0 Vicryl suture. Dermabond dressing were applied. The patient tolerated the procedure well.
[2017-06-25] MEDS ORDERED: ONDANSETRON 4 MG/2 ML VIAL IVP PRN (15:55)
[2017-06-25] MEDS ORDERED: ACETAMINOPHEN TAB 325 MG TAB PO PRN (15:55)
[2017-06-25] MEDS ORDERED: NALOXONE 0.4 MG/ML 1 ML VIAL IV PRN (15:55)
[2017-06-25] MEDS ORDERED: LACTATED RINGERS 1,000 ML IV ONE (15:55)
[2017-06-25] MEDS: HYDROmorphone 0.5 MG/0.5 ML SYRINGE IVP PRN ×2 (16:15→16:23)
[2017-06-25] MEDS: KETOROLAC 30 MG/ML 1 ML VIAL IVP SCH ×2 (17:42→21:58)
[2017-06-25] MEDS ORDERED: ALBUTEROL NEBULIZED 2.5 MG/3 ML INHALATION PRN (18:46)
--- NOTE | 2017-06-25 18:48 | P.CONS ---
History of Present Illness - Reason for Consult COPD and preoperative combination management. - History of Present Illness Patient came in with right upper quadrant abdominal pain found to have cholelithiasis and cholecystitis [place] I underwent laparoscopic surgery patient is clinically doing well at this point of time patient and any fever chills nausea vomiting abdominal pain, although patient does have posterior surgical abdominal soreness the past as did not move her bowels yet. Review of Systems REVIEW OF SYSTEMS: CONSTITUTIONAL: No fever, no malaise, no fatigue. HEENT: No recent visual problems or hearing problems. Denied any sore throat. CARDIOVASCULAR: No chest pain, orthopnea, PND, no palpitations, no syncope. PULMONARY: No shortness of breath, no cough, no hemoptysis. GASTROINTESTINAL: No diarrhea, no nausea, no vomiting, no abdominal pain. Normoactive bowel sounds. NEUROLOGICAL: No headaches, no weakness, no numbness. HEMATOLOGICAL: Denies any bleeding or petechiae. GENITOURINARY: Denies any burning micturition, frequency, or urgency. MUSCULOSKELETAL/RHEUMATOLOGICAL: Denies any joint pain, swelling, or any muscle pain. ENDOCRINE: Denies any polyuria or polydipsia. The rest of the 14-point review of systems is negative. 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 History of Any Multi-Drug Resistant Organisms: None Reported Past Surgical History: No Surgical Hx Reported Additional Past Surgical History / Comment(s): "FLUID REMOVED FROM HEART and lungs/chest tubes/thoracentesis" Past Anesthesia/Blood Transfusion Reactions: No Reported Reaction Smoking Status: Former smoker - Past Family History Mother Family Medical History: Myocardial Infarction ([place]) Father Family Medical History: Cancer Additional Family Medical History / Comment(s): lung cancer Medications and Allergies Home Medications Medication Instructions Recorded Confirmed Type Divalproex [Depakote] 500 mg PO TID 06/01/14 06/24/17 History PHENobarbital [Luminal] 32.4 mg PO HS 06/01/14 06/24/17 History Phenytoin Sodium Extended 100 mg PO TID 06/01/14 06/24/17 History [Dilantin] Acetaminophen Tab [Tylenol Tab] 500 mg PO BID PRN 04/29/17 06/24/17 History Albuterol Inhaler [Ventolin Hfa 2 puff INHALATION RT-Q6H PRN 04/29/17 06/24/17 History Inhaler] Levofloxacin [Levaquin] 500 mg PO DAILY 06/24/17 06/24/17 History predniSONE 10 mg PO BID 06/24/17 06/24/17 History Allergies Allergy/AdvReac Type Severity Reaction Status Date / Time blue dye Allergy Unknown Verified 06/25/17 14:32 latex Allergy Rash/Hives Verified 06/25/17 14:32 red dye Allergy Unknown Verified 06/25/17 14:32 codeine AdvReac Hallucinati Verified 06/25/17 14:32 ons Physical Exam Vitals: Vital Signs Temp Pulse Resp BP Pulse Ox 06/25/17 17:00 96.9 F L 57 L 18 101/53 92 L 06/25/17 16:29 51 L 16 111/56 95 06/25/17 16:15 52 L 16 113/56 96 06/25/17 16:01 70 22 134/61 100 06/25/17 15:53 98.2 F 69 22 128/60 100 06/25/17 14:30 98.2 F 56 L 16 102/56 93 L 06/25/17 11:34 97.9 F 59 L 18 110/46 97 06/25/17 11:25 97.9 F 75 18 110/46 97 06/25/17 08:15 97.1 F L 57 L 18 95/61 95 06/25/17 04:00 97.0 F L 57 L 18 98/59 94 L 06/25/17 00:00 97.6 F 53 L 17 95/51 97 06/24/17 21:00 93 L 06/24/17 20:00 97.7 F 53 L 18 93/56 94 L Intake and Output 06/25/17 06/25/17 06/25/17 06:59 14:59 22:59 Intake Total 1000 100 440 Output Total 500 200 205 Balance 500 -100 235 Intake: IV 1000 200 Sodium Chloride 0.9% 1, 1000 000 ml @ 100 mls/hr IV . Q10H STA Rx#:[id number] Oral 100 240 Output: Urine 500 200 200 Estimated Blood Loss 5 Other: Voiding Method Toilet # Voids 1 1 # Bowel Movements 0 Weight 51.9 kg 51.9 kg Patient Weight 06/26/17 06:59 Weight 51.9 kg PHYSICAL EXAMINATION: GENERAL: The patient is alert and oriented x3, not in any acute distress. Well developed, well nourished. HEENT: Pupils are round and equally reacting to light. EOMI. No scleral icterus. No conjunctival pallor. Normocephalic, atraumatic. No pharyngeal erythema. No thyromegaly. CARDIOVASCULAR: S1 and S2 present. No murmurs, rubs, or gallops. PULMONARY: Chest is clear to auscultation, no wheezing or crackles. ABDOMEN: Soft, surgical site areas appear to be clean MUSCULOSKELETAL: No joint swelling or deformity. EXTREMITIES: No cyanosis, clubbing, or pedal edema. NEUROLOGICAL: Gross neurological examination did not reveal any focal deficits. SKIN: No rashes. Results CBC & Chem 7: 06/25/17 06:06 06/25/17 06:06 Labs: Abnormal Lab Results - Last 24 Hours (Table) 06/25/17 06/25/17 06/25/17 Range/Units 03:39 06:06 06:06 WBC 2.1 L (3.8-10.6) k/uL RBC 3.71 L (3.80-5.40) m/uL MCV 101.5 H (80.0-100.0) fL Plt Count 93 L (150-450) k/uL Neutrophils # 1.0 L (1.3-7.7) k/uL Lymphocytes # 0.8 L (1.0-4.8) k/uL Chloride 109 H (98-107) mmol/L Calcium 7.8 L (8.4-10.2) mg/dL Total Bilirubin 0.1 L (0.2-1.3) mg/dL Total Protein 5.4 L (6.3-8.2) g/dL Albumin 2.5 L (3.5-5.0) g/dL HDL Cholesterol 36 L (40-60) mg/dL Assessment and Plan Plan: #1 cholelithiasis with possible cholecystitis: Patient underwent surgical removal of the gallbladder clinically doing well pain management due to prophylaxis per primary service. #2 seizure disorder : Continue with Depakote #3 hyperchloremia: Due to IV normal saline placement was switched to lactated Ringer's which is appropriate #4 smoking history: Counseling was provided
[2017-06-25] MEDS: PHENobarbital 32.4 MG TAB PO SCH (21:58)
[2017-06-26] MEDS: AMPICILLIN-SULBACTAM 3 GM in SODIUM CHLORIDE 0.9% 100 ML IVPB SCH ×4 (01:42→17:31)
[2017-06-26] MEDS: KETOROLAC 30 MG/ML 1 ML VIAL IVP SCH ×4 (03:33→21:48)
[2017-06-26] MEDS: HYDROcodone/APAP 5-325MG 1 EACH TAB PO PRN ×3 (07:20→22:38)
[2017-06-26] MEDS: PHENYTOIN SODIUM EXTENDED 100 MG CAP PO SCH ×3 (08:42→21:50)
[2017-06-26] MEDS: ASPIRIN 325 MG TAB PO SCH (08:42)
[2017-06-26] MEDS: DIVALPROEX 500 MG TABLET.DR PO SCH ×3 (08:42→21:49)
[2017-06-26] MEDS: predniSONE 10 MG TAB PO SCH ×2 (08:42→21:48)
--- NOTE | 2017-06-26 10:01 | P.PN ---
Subjective Progress Note Date: 06/26/17 Principal diagnosis: Cholecystitis Patient feels better today. She underwent laparoscopic cholecystectomy 2 days ago. She is tolerating her diet. She does describe a sore throat. She feels like trying to go home possibly later today. Objective - Vital Signs Vital signs: Vital Signs Temp 97.8 F 06/26/17 07:15 Pulse 56 L 06/26/17 07:15 Resp 16 06/26/17 07:15 BP 105/61 06/26/17 07:15 Pulse Ox 96 06/26/17 07:15 Intake & Output 06/25/17 06/26/17 06/26/17 18:59 06:59 18:59 Intake Total 540 500 Output Total 405 Balance 135 500 Weight 51.9 kg Intake: IV 200 500 Sodium Chloride 0.9% 1, 500 000 ml @ 100 mls/hr IV . Q10H STA Rx#:[id number] Oral 340 Output: Urine 400 Estimated Blood Loss 5 Other: # Voids 1 2 # Bowel Movements 0 - Exam Abdomen: Soft, nontender, nondistended, incisions clean and dry - Labs CBC & Chem 7: 06/25/17 06:06 06/25/17 06:06 Assessment and Plan (1) Acute cholecystitis Narrative/Plan: Continue diet as tolerated. Possible discharge later today. Current Visit: Yes Status: Acute Code(s): K81.0 - ACUTE CHOLECYSTITIS SNOMED Code(s): 78709181
[2017-06-26 14:21] VITALS: RESP 16
[2017-06-26] MEDS: PHENobarbital 32.4 MG TAB PO SCH (21:51)
[2017-06-27] MEDS: AMPICILLIN-SULBACTAM 3 GM in SODIUM CHLORIDE 0.9% 100 ML IVPB SCH ×3 (00:15→11:41)
[2017-06-27] MEDS: KETOROLAC 30 MG/ML 1 ML VIAL IVP SCH ×2 (04:54→09:17)
[2017-06-27] MEDS: HYDROcodone/APAP 5-325MG 1 EACH TAB PO PRN ×2 (04:59→11:41)
[2017-06-27 07:17] VITALS: BP 118/60; PULSE 59; TEMP 97.9
[2017-06-27] MEDS: DIVALPROEX 500 MG TABLET.DR PO SCH ×2 (09:07→15:45)
[2017-06-27] MEDS: predniSONE 10 MG TAB PO SCH (09:07)
[2017-06-27] MEDS: PHENYTOIN SODIUM EXTENDED 100 MG CAP PO SCH ×2 (09:07→15:45)
[2017-06-27] MEDS: ASPIRIN 325 MG TAB PO SCH (09:07)
--- NOTE | 2017-06-27 09:32 | P.PN ---
Subjective Progress Note Date: 06/27/17 Principal diagnosis: Cholecystitis Patient feels better today. Pain is improved. She is tolerating diet. She is ambulating. Objective - Vital Signs Vital signs: Vital Signs Temp 97.9 F 06/27/17 07:16 Pulse 59 L 06/27/17 07:16 Resp 16 06/27/17 07:16 BP 118/60 06/27/17 07:16 Pulse Ox 92 L 06/27/17 07:16 Intake & Output 06/26/17 06/27/17 06/27/17 19:59 06:59 18:59 Output Total Balance Weight 54.3 kg Output: Urine Other: Voiding Method # Voids - Exam Abdomen: Soft, nondistended, mild incisional tenderness - Labs CBC & Chem 7: 06/25/17 06:06 06/25/17 06:06 Assessment and Plan (1) Acute cholecystitis Narrative/Plan: Plan discharge today if cleared by medicine. Current Visit: Yes Status: Acute Code(s): K81.0 - ACUTE CHOLECYSTITIS SNOMED Code(s): 21134606
--- NOTE | 2017-09-10 09:53 | P.DS ---
Providers Date of admission: 06/24/17 16:03 Expected date of discharge: 06/27/17 Attending physician: Juan J Palacios Consults: 06/25/17 15:55 Consult Physician Routine Consulting Provider: Gifty Lewis Consult Reason/Comments: med manage Do you want consulting provider notified?: Yes Primary care physician: Jelena Nesbitt [facility] Course: Is a 62-year-old female who is admitted to the hospital complaints of right upper quadrant pain. Patient underwent laparoscopic cholecystectomy. Please see hospital chart for details. Procedures: Laparoscopic cholecystectomy Patient Condition at Discharge: Good Plan - Discharge Summary Discharge Rx Participant: Yes New Discharge Prescriptions: No Action Phenytoin Sodium Extended [Dilantin] 100 mg PO TID Divalproex [Depakote] 500 mg PO TID Acetaminophen Tab [Tylenol Tab] 500 mg PO BID PRN PRN Reason: Pain Or Fever > 100.5 Albuterol Inhaler [Ventolin Hfa Inhaler] 2 puff INHALATION RT-Q6H PRN PRN Reason: Shortness Of Breath PHENobarbital 30 mg PO HS Discharge Medication List Divalproex [Depakote] 500 mg PO TID 06/01/14 [History] Phenytoin Sodium Extended [Dilantin] 100 mg PO TID 06/01/14 [History] Acetaminophen Tab [Tylenol Tab] 500 mg PO BID PRN 04/29/17 [History] Albuterol Inhaler [Ventolin Hfa Inhaler] 2 puff INHALATION RT-Q6H PRN 04/29/17 [ History] PHENobarbital 30 mg PO HS 08/05/17 [History] Follow up Appointment(s)/Referral(s): Laz Bowles MD [Primary Care Provider] - 1-2 days Juan J Palacios MD [STAFF PHYSICIAN] - 1 Week Patient Instructions/Handouts: Chest Pain (ED), Laparoscopic Cholecystectomy ( [place]) Discharge Disposition: HOME SELF-CARE
== END 2017-06-27 16:31 | disposition home or self-care (01) | DRG 263 ==
LOC: EC 14:31 → 6SEL 16:03 → 3SUR 06-25 18:50
PROVIDERS: ADMIT Surgery; ATTEND Surgery
PROC: 0FT44ZZ Resection of Gallbladder, Percutaneous Endoscopic Approach (ICD-10-PCS; principal; 2017-06-25 08:15)
DX: K80.66 Calculus of gallbladder and bile duct with acute and chronic cholecystitis without obstruction (principal); E87.8 Other disorders of electrolyte and fluid balance, not elsewhere classified; J44.9 Chronic obstructive pulmonary disease, unspecified; G40.909 Epilepsy, unspecified, not intractable, without status epilepticus; J02.9 Acute pharyngitis, unspecified; M19.90 Unspecified osteoarthritis, unspecified site; Z87.01 Personal history of pneumonia (recurrent); Z88.6 Allergy status to analgesic agent; Z79.899 Other long term (current) drug therapy; Z80.1 Family history of malignant neoplasm of trachea, bronchus and lung; Z91.040 Latex allergy status; Z91.048 Other nonmedicinal substance allergy status; Z82.49 Family history of ischemic heart disease and other diseases of the circulatory system; Z86.69 Personal history of other diseases of the nervous system and sense organs; Z87.11 Personal history of peptic ulcer disease; Z87.891 Personal history of nicotine dependence
CPT/HCPCS: 36415; 71020; 76705; 80053; 80061; 82550; 82553; 83690; 83735; 84484; 85025; 85610; 85730; 88304; 93005; 96361; 96365; 96375; 99285

== ENCOUNTER → 2017-12-02 | Outpatient (CLI) | payer OTHER ==
[2017-12-02 15:05] LABS: Phenytoin (Dilantin) 10.2 ug/mL
[2017-12-02 15:08] LABS: Valproic Acid (Depakene) 49.7 ug/mL
[2017-12-02 15:14] LABS: Basophils % (A) 0 %; Eosinophils # (A) 0.2 k/uL (0-0.7); Eosinophils % (A) 4 %; HCT 41.1 % (34.0-46.0); HGB 14.2 gm/dL (11.4-16.0); Lymphocytes # (A) 1.3 k/uL (1.0-4.8); Lymphocytes % (A) 26 %; MCH 31.8 pg (25.0-35.0); MCHC 34.6 g/dL (31.0-37.0); MCV 91.9 fL (80.0-100.0); Mean Platelet Volume 6.7; Monocytes # (A) 0.3 k/uL (0-1.0); Monocytes % (A) 6 %; Neutrophils # (A) 3.1 k/uL (1.3-7.7); Neutrophils % (A) 62 %; Platelet Count 210 k/uL (150-450); RBC 4.47 m/uL (3.80-5.40); RDW 12.7 % (11.5-15.5)
== END | disposition home or self-care (01) ==
LOC: LABWHC1 14:10
PROVIDERS: ATTEND Psychiatry & Neurology Neurology
DX: G40.209 Localization-related (focal) (partial) symptomatic epilepsy and epileptic syndromes with complex partial seizures, not intractable, without status epilepticus (principal)
CPT/HCPCS: 36415; 80164; 80184; 80185; 84450; 84460; 85025

== ENCOUNTER → 2018-01-07 | Outpatient (CLI) | payer OTHER ==
--- NOTE | 2018-01-07 15:10 | CT ---
EXAMINATION TYPE: CT abdomen pelvis w con DATE OF EXAM: 01/07/2018 COMPARISON: NONE HISTORY: Right sided (upper quadrant) pain CT DLP: 328.2 mGycm Automated exposure control for dose reduction was used. TECHNIQUE: Helical acquisition of images from the lung bases through the pelvis have been completed. CONTRAST: Performed with Oral Contrast and with IV Contrast, patient injected with 100 mL of Isovue 300. FINDINGS: Inferior aspect of the right breast shows a soft tissue mass measuring 2.3 cm. LUNG BASES: No significant abnormality is appreciated. AORTA: No significant abnormality is appreciated. LIVER/GB: The liver is enlarged and shows low attenuation, consider hepatic steatosis, gallbladder is absent PANCREAS: No significant abnormality is seen. SPLEEN: No significant abnormality is seen. ADRENALS: No significant abnormality is seen. KIDNEYS: Subcentimeter hypodensities associated with the kidneys statistically are likely to represen t cysts. REPRODUCTIVE ORGANS: No significant abnormality is seen BOWEL: Some colonic wall thickening is indeterminate, findings could be related to muscular hypertro phy or lack of distention, mucosal lesion is not excluded, bowel surveillance suggested if it has not been performed. There is a large amount of retained fecal debris present within the colon. Probable lipoma present in the wall of the third portion of the duodenum measures 9 to 10 mm in size. FREE AIR: No Free Air visible. ASCITES: None visible. PELVIC ADENOPATHY: None visualized. RETROPERITONEAL ADENOPATHY: No Retroperitoneal Adenopathy visible. URINARY BLADDER: No significant abnormality is seen. OSSEOUS STRUCTURES: Degenerative disc changes are present at the lumbar sacral junction. IMPRESSION: SOFT TISSUE MASS INFERIOR RIGHT BREAST IS INDETERMINATE. FINDINGS IN THE LIVER DESCRIBED WITH NIKKI TATE. INDETERMINATE COLONIC WALL THICKENING. CORRELATE FOR FECAL STASIS. DUODENAL LIPOMA. Additio nal findings above.
== END | disposition home or self-care (01) ==
LOC: RADCTMAIN 11:11
PROVIDERS: ATTEND Surgery
DX: D17.5 Benign lipomatous neoplasm of intra-abdominal organs (principal); R19.5 Other fecal abnormalities; R16.0 Hepatomegaly, not elsewhere classified; Z91.040 Latex allergy status; Z91.041 Radiographic dye allergy status; Z88.5 Allergy status to narcotic agent
CPT/HCPCS: 74177; Q9967

== ENCOUNTER 2018-01-15 22:20 | Emergency (ER) | payer OTHER ==
[2018-01-15 23:08] LABS: Basophils % (A) 0 %; Eosinophils # (A) 0.4 k/uL (0-0.7); Eosinophils % (A) 7 %; HCT 37.1 % (34.0-46.0); HGB 12.7 gm/dL (11.4-16.0); Lymphocytes # (A) 1.4 k/uL (1.0-4.8); Lymphocytes % (A) 26 %; MCH 32.2 pg (25.0-35.0); MCHC 34.2 g/dL (31.0-37.0); MCV 94.1 fL (80.0-100.0); Mean Platelet Volume 7.2; Monocytes # (A) 0.3 k/uL (0-1.0); Monocytes % (A) 5 %; Neutrophils # (A) 3.3 k/uL (1.3-7.7); Neutrophils % (A) 61 %; Platelet Count 164 k/uL (150-450); RBC 3.94 m/uL (3.80-5.40); RDW 13.2 % (11.5-15.5); WBC 5.4 k/uL (3.8-10.6)
[2018-01-15 23:18] LABS: ALT 24 U/L (9-52); AST 20 U/L (14-36); Albumin 3.5 g/dL (3.5-5.0); Alkaline Phosphatase 76 U/L (38-126); Amylase 66 U/L (30-110); Anion Gap 9 mmol/L; Blood Urea Nitrogen 26 mg/dL (7-17); Calcium 8.5 mg/dL (8.4-10.2); Carbon Dioxide 24 mmol/L (22-30); Chloride 109 mmol/L (98-107); Glucose 90 mg/dL (74-99); Lipase 62 U/L (23-300); Sodium 142 mmol/L (137-145); Total Bilirubin 0.2 mg/dL (0.2-1.3); Total Protein 6.9 g/dL (6.3-8.2)
[2018-01-15 23:52] LABS: Appearance,Urine Clear (Clear); Bilirubin,Urine Negative (Negative); Blood,Urine Negative (Negative); Color,Urine Yellow; Glucose,Urine (UA) Negative (Negative); Ketones,Urine Trace (Negative); Leukocyte Esterase,Urine Moderate (Negative); Mucus,Urine Rare /hpf; Nitrite,Urine Negative (Negative); Protein,Urine Negative (Negative); RBC,Urine 1 /hpf (0-5); Specific Gravity,Urine 1.017 (1.001-1.035); Squamous Epithelial Cell,Urine <1 /hpf (0-4); WBC,Urine 3 /hpf (0-5)
[2018-01-16] MEDS ORDERED: MORPHINE SULFATE 4 MG/ML SYRINGE IV STA (00:35)
--- NOTE | 2018-01-16 02:33 | XR ---
EXAMINATION TYPE: XR abdomen 2V DATE OF EXAM: 01/16/2018 COMPARISON: NONE HISTORY: Right flank pain TECHNIQUE: 2 views supine and upright FINDINGS: There is no sign of intestinal obstruction or pneumoperitoneum. Fecal pattern is normal. Jamila ng bases are clear. There are no pathologic calcifications. IMPRESSION: Nonacute abdomen.
[2018-01-16] MEDS ORDERED: DICYCLOMINE 10 MG/ML 2 ML AMP IM STA (03:31)
[2018-01-16] MEDS ORDERED: PEG 3350-NA SULF,BICARB,CL/KCL 4,000 ML BOTTLE PO ONE (03:31)
--- NOTE | 2018-01-16 03:34 | ED ---
Abdominal Pain HPI - General Chief Complaint: Abdominal Pain Stated Complaint: abd pain Time Seen by Provider: 01/15/18 22:39 Source: patient Mode of arrival: EMS - History of Present Illness MD Complaint: abdominal pain -: hour(s) Location: RLQ Radiation: none Severity: moderate Quality: aching Consistency: constant Improves With: nothing Worsens With: nothing - Related Data Home Medications Medication Instructions Recorded Confirmed Divalproex [Depakote] 500 mg PO TID 06/01/14 01/20/18 Phenytoin Sodium Extended 100 mg PO TID 06/01/14 01/20/18 [Dilantin] Acetaminophen Tab [Tylenol Tab] 500 mg PO BID PRN 04/29/17 01/20/18 Albuterol Inhaler [Ventolin Hfa 2 puff INHALATION RT-Q6H PRN 04/29/17 01/20/18 Inhaler] PHENobarbital 30 mg PO HS 08/05/17 01/20/18 Cyclobenzaprine HCl 10 mg PO DAILY PRN 01/14/18 01/20/18 [Cyclobenzaprine HCl] Allergies Allergy/AdvReac Type Severity Reaction Status Date / Time blue dye Allergy Unknown Verified 01/20/18 09:08 divalproex sodium Allergy can not Verified 01/20/18 09:08 [From Depakote] take in generic form latex Allergy Rash/Hives Verified 01/20/18 09:08 phenytoin [From Dilantin] Allergy CAN NOT Verified 01/20/18 09:08 USE GENERIC FORM red dye Allergy Unknown Verified 01/20/18 09:08 codeine AdvReac Hallucinati Verified 01/20/18 09:08 ons Review of Systems ROS Statement: Those systems with pertinent positive or pertinent negative responses have been documented in the HPI. ROS Other: All systems not noted in ROS Statement are negative. Constitutional: Denies: fever, chills, weakness Respiratory: Denies: cough, dyspnea Cardiovascular: Denies: chest pain, palpitations, edema Gastrointestinal: Reports: as per HPI, abdominal pain. 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", hypoglycemia, past lt leg fx, start of cataracts, petptic ulcer disease.muscle spasm,generalized tremors History of Any Multi-Drug Resistant Organisms: None Reported Past Surgical History: Cholecystectomy Additional Past Surgical History / Comment(s): "FLUID REMOVED FROM HEART and lungs/chest tubes/thoracentesis" Past Anesthesia/Blood Transfusion Reactions: No Reported Reaction Past Psychological History: No Psychological Hx Reported Smoking Status: Current every day smoker - Past Family History Mother Family Medical History: Myocardial Infarction ([place]) Father Family Medical History: Cancer Additional Family Medical History / Comment(s): lung cancer General Exam General appearance: alert, in no apparent distress Head exam: Present: atraumatic, normocephalic Eye exam: Present: normal appearance. Absent: scleral icterus, conjunctival injection Respiratory exam: Present: normal lung sounds bilaterally. Absent: respiratory distress, wheezes, rales, rhonchi, stridor Cardiovascular Exam: Present: regular rate, normal rhythm, normal heart sounds. Absent: systolic murmur, diastolic murmur, rubs, gallop GI/Abdominal exam: Present: soft. Absent: distended, tenderness, guarding, rebound, rigid, mass, pulsatile mass Extremities exam: Present: normal inspection, normal capillary refill. Absent: pedal edema, calf tenderness Back exam: Present: normal inspection. Absent: CVA tenderness (R), CVA tenderness (L) Neurological exam: Present: alert Skin exam: Present: warm, dry, intact, normal color. Absent: rash Course Vital Signs 01/15/18 01/15/18 01/16/18 22:26 23:23 00:04 Temperature 97.8 F Pulse Rate 69 66 60 Respiratory 15 19 19 Rate Blood Pressure 111/59 96/54 101/55 O2 Sat by Pulse 93 L 98 95 Oximetry 01/16/18 01/16/18 01/16/18 00:55 02:27 03:48 Temperature 97.5 F L Pulse Rate 65 55 L 64 Respiratory 19 19 18 Rate Blood Pressure 143/65 128/63 98/50 O2 Sat by Pulse 95 97 96 Oximetry 01/16/18 04:12 Temperature Pulse Rate 59 L Respiratory 16 Rate Blood Pressure 135/74 O2 Sat by Pulse 96 Oximetry Medical Decision Making - Medical Decision Making Patient is 62-year-old woman here to be evaluated for abdominal pain. Her workup is negative, and her symptoms did resolve. Her exam is benign. Discussed admission for observation but the patient is feeling better. She does agree to return should symptoms recur. We discussed appropriate further care and follow-up, as well as return parameters - Lab Data Result diagrams: 01/15/18 23:00 01/15/18 23:00 Lab Results 01/15/18 01/15/18 01/15/18 Range/Units 23:00 23:00 23:26 WBC 5.4 (3.8-10.6) k/uL RBC 3.94 (3.80-5.40) m/uL Hgb 12.7 (11.4-16.0) gm/dL Hct 37.1 (34.0-46.0) % MCV 94.1 (80.0-100.0) fL MCH 32.2 (25.0-35.0) pg MCHC 34.2 (31.0-37.0) g/dL RDW 13.2 (11.5-15.5) % Plt Count 164 (150-450) k/uL Neutrophils % 61 % Lymphocytes % 26 % Monocytes % 5 % Eosinophils % 7 % Basophils % 0 % Neutrophils # 3.3 (1.3-7.7) k/uL Lymphocytes # 1.4 (1.0-4.8) k/uL Monocytes # 0.3 (0-1.0) k/uL Eosinophils # 0.4 (0-0.7) k/uL Basophils # 0.0 (0-0.2) k/uL Sodium 142 (137-145) mmol/L Potassium 4.0 (3.5-5.1) mmol/L Chloride 109 H (98-107) mmol/L Carbon Dioxide 24 (22-30) mmol/L Anion Gap 9 mmol/L BUN 26 H (7-17) mg/dL Creatinine 0.60 (0.52-1.04) mg/dL Est GFR (CKD-EPI)AfAm >90 (>60 ml/min/1.73 sqM) Est GFR (CKD-EPI)NonAf >90 (>60 ml/min/1.73 sqM) Glucose 90 (74-99) mg/dL Calcium 8.5 (8.4-10.2) mg/dL Total Bilirubin 0.2 (0.2-1.3) mg/dL AST 20 (14-36) U/L ALT 24 (9-52) U/L Alkaline Phosphatase 76 (38-126) U/L Total Protein 6.9 (6.3-8.2) g/dL Albumin 3.5 (3.5-5.0) g/dL Amylase 66 (30-110) U/L Lipase 62 (23-300) U/L Urine Color Yellow Urine Appearance Clear (Clear) Urine pH 7.0 (5.0-8.0) Ur Specific [place] 1.017 (1.001-1.035) Urine Protein Negative (Negative) Urine Glucose (UA) Negative (Negative) Urine Ketones Trace H (Negative) Urine Blood Negative (Negative) Urine Nitrite Negative (Negative) Urine Bilirubin Negative (Negative) Urine Urobilinogen 2.0 (<2.0) mg/dL Ur Leukocyte Esterase Moderate H (Negative) Urine RBC 1 (0-5) /hpf Urine WBC 3 (0-5) /hpf Ur Squamous Epith Cells <1 (0-4) /hpf Urine Mucus Rare H (None) /hpf Disposition Clinical Impression: Abdominal pain, Breast mass Disposition: HOME SELF-CARE Condition: Fair Instructions: Abdominal Pain (ED), Breast Mass (ED) Additional Instructions: As we discussed, keep your appointment for the follow-up mammogram and keep her appointment for the follow-up colonoscopy to ensure that there is no evidence of cancer with both of these studies. Is patient prescribed a controlled substance at d/c from ED?: No Referrals: Yolis Trujillo MD [Primary Care Provider] - 1-2 days
[2018-01-16 03:49] VITALS: TEMP 97.5
[2018-01-16 04:13] VITALS: BP 135/74; PULSE 59; RESP 16
== END 2018-01-16 04:12 | disposition home or self-care (01) ==
LOC: EC 22:20
DX: N63.0 Unspecified lump in unspecified breast (principal); R10.31 Right lower quadrant pain; G40.909 Epilepsy, unspecified, not intractable, without status epilepticus; J44.9 Chronic obstructive pulmonary disease, unspecified; F17.200 Nicotine dependence, unspecified, uncomplicated; Z79.899 Other long term (current) drug therapy; Z88.5 Allergy status to narcotic agent; Z88.8 Allergy status to other drugs, medicaments and biological substances; Z91.040 Latex allergy status; Z91.048 Other nonmedicinal substance allergy status; Z90.49 Acquired absence of other specified parts of digestive tract
CPT/HCPCS: 36415; 80053; 82150; 83690; 85025; 81001; 74019; 99285; 96374; 96372; J2270; J0500

== ENCOUNTER 2018-01-20 08:35 | Day surgery (SDC) | payer OTHER ==
[2018-01-14 15:42] VITALS: BMI 18.1
[~2018-01-20 08:35] MED LIST: LACTATED RINGERS 1,000 ML IV SCH
[2018-01-20 09:14] VITALS: RESP 18; TEMP 97.5
[2018-01-20] MEDS ORDERED: LIDOCAINE 1% 20 ML VIAL (10MG/ML) FOR IV START INTRADERMA ONE (09:14)
[2018-01-20 09:15] LABS: Glucose,Whole Blood 71 mg/dL (75-99)
[2018-01-20] MEDS ORDERED: PROPOFOL 10 MG/ML 20 ML VIAL IV ONE (10:00)
[2018-01-20] MEDS ORDERED: LIDOCAINE 1% INJ 10MG/ML (20 ML MDV) ONE (10:00)
--- NOTE | 2018-01-20 10:15 | P.GSHP ---
History of Present Illness H&P Date: 01/20/18 Chief Complaint: Colitis This a 62-year-old female referred from . The patient's had complaints of right quadrant pain. Her recent CAT scan shows evidence of colonic wall thickening suggestive colitis. She presents today for colonoscopy. 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", hypoglycemia, past lt leg fx, start of cataracts, petptic ulcer disease.muscle spasm,generalized tremors History of Any Multi-Drug Resistant Organisms: None Reported Past Surgical History: Cholecystectomy Additional Past Surgical History / Comment(s): "FLUID REMOVED FROM HEART and lungs/chest tubes/thoracentesis" Past Anesthesia/Blood Transfusion Reactions: No Reported Reaction Past Psychological History: No Psychological Hx Reported Smoking Status: Current every day smoker - Past Family History Mother Family Medical History: Myocardial Infarction ([place]) Father Family Medical History: Cancer Additional Family Medical History / Comment(s): lung cancer Medications and Allergies Home Medications Medication Instructions Recorded Confirmed Type Divalproex [Depakote] 500 mg PO TID 06/01/14 01/20/18 History Phenytoin Sodium Extended 100 mg PO TID 06/01/14 01/20/18 History [Dilantin] Acetaminophen Tab [Tylenol Tab] 500 mg PO BID PRN 04/29/17 01/20/18 History Albuterol Inhaler [Ventolin Hfa 2 puff INHALATION RT-Q6H PRN 04/29/17 01/20/18 History Inhaler] PHENobarbital 30 mg PO HS 08/05/17 01/20/18 History Cyclobenzaprine HCl 10 mg PO DAILY PRN 01/14/18 01/20/18 History [Cyclobenzaprine HCl] Allergies Allergy/AdvReac Type Severity Reaction Status Date / Time blue dye Allergy Unknown Verified 01/20/18 09:08 divalproex sodium Allergy can not Verified 01/20/18 09:08 [From Depakote] take in generic form latex Allergy Rash/Hives Verified 01/20/18 09:08 phenytoin [From Dilantin] Allergy CAN NOT Verified 01/20/18 09:08 USE GENERIC FORM red dye Allergy Unknown Verified 01/20/18 09:08 codeine AdvReac Hallucinati Verified 01/20/18 09:08 ons Surgical - Exam Vital Signs Temp Pulse Resp BP Pulse Ox 97.5 F L 70 18 112/58 97 01/20/18 09:12 01/20/18 09:12 01/20/18 09:12 01/20/18 09:12 01/20/18 09:12 - General well developed, no distress - Eyes PERRL - ENT normal pinna - Respiratory normal expansion - Cardiovascular Rhythm: regular - Abdomen Mild right upper quadrant pain Abdomen: soft Results - Labs Abnormal Lab Results - Last 24 Hours (Table) 01/20/18 Range/Units 09:01 POC Glucose (mg/dL) 71 L (75-99) mg/dL Assessment and Plan Assessment: Right quadrant pain, bowel wall thickening suggestive colitis. We'll perform colonoscopy.
--- NOTE | 2018-01-20 10:35 | P.OP ---
Date of Procedure: 01/20/18 Preoperative Diagnosis: Colitis Postoperative Diagnosis: Normal colon Procedure(s) Performed: Colonoscopy Anesthesia: MAC Surgeon: Juan J Palacios Pathology: none sent Condition: stable Disposition: PACU Description of Procedure: PROCEDURE: The patient was placed on the endoscopy table in the lateral position. Digital rectal examination was performed which revealed no abnormalities. es. Flexible colonoscope was then placed in the patient's anus and passed throughout the entire colon. The ileocecal valve was visualized. The cecum, ascending, transverse, descending and sigmoid colon were normal. The rectum was normal as well. There were no masses, polyps or diverticula noted in the entire colon. SUMMARY OF FINDINGS: Normal colonoscopy.
[2018-01-20 10:54] VITALS: BP 123/75; PULSE 67
== END 2018-01-20 11:10 | disposition home or self-care (01) ==
LOC: ORWHC2ENDO 08:35
PROVIDERS: ATTEND Surgery
DX: R10.9 Unspecified abdominal pain (principal); J44.9 Chronic obstructive pulmonary disease, unspecified; M19.90 Unspecified osteoarthritis, unspecified site; G40.909 Epilepsy, unspecified, not intractable, without status epilepticus; G43.909 Migraine, unspecified, not intractable, without status migrainosus; F17.200 Nicotine dependence, unspecified, uncomplicated; Z88.5 Allergy status to narcotic agent; Z82.49 Family history of ischemic heart disease and other diseases of the circulatory system; Z79.899 Other long term (current) drug therapy; Z88.8 Allergy status to other drugs, medicaments and biological substances; Z91.041 Radiographic dye allergy status; Z91.040 Latex allergy status; Z79.51 Long term (current) use of inhaled steroids; Z87.01 Personal history of pneumonia (recurrent)
CPT/HCPCS: 45378; J2001; J2704

== ENCOUNTER → 2018-01-26 | Outpatient (CLI) | payer OTHER ==
--- NOTE | 2018-01-31 13:29 | MM ---
Reason for exam: screening (asymptomatic). Last mammogram was performed 7 years and 5 months ago. History: Patient is postmenopausal. Benign excisional biopsy of the left breast. Physical Findings: A clinical breast exam by your physician is recommended on an annual basis and results should be correlated with mammographic findings. MG Screening Mammo w CAD Bilateral CC, MLO, and XCCL view(s) were taken. Prior study comparison: December 08, 2011, mammogram, performed at [facility]. September 12, 2010, bilateral digital screening mammo w/CAD. The breast tissue is heterogeneously dense. This may lower the sensitivity of mammography. No significant changes when compared with prior studies. ASSESSMENT: Benign, BI-RAD 2 RECOMMENDATION: Routine screening mammogram of both breasts in 1 year.
== END | disposition home or self-care (01) ==
LOC: RADMAMWWP 10:35
PROVIDERS: ATTEND Surgery
DX: Z12.31 Encounter for screening mammogram for malignant neoplasm of breast (principal)
CPT/HCPCS: 77067

== ENCOUNTER → 2018-02-08 | Outpatient (CLI) | payer OTHER ==
--- NOTE | 2018-02-08 16:27 | MR ---
EXAMINATION TYPE: MR brain wo/w con DATE OF EXAM: 02/08/2018 COMPARISON: CT brain 08/05/2017., CT brain 02/28/2014 HISTORY: Partial epilepsy with impairment CONTRAST: Performed utilizing 4.5 mL intravenous Gadavist gadolinium contrast. TECHNIQUE: Multiplanar, multiecho imaging on a 3.0 Yahaira magnet is performed through the brain. Stud y is performed within 24 hours of arrival to the hospital. The craniovertebral junction is normal. The pituitary is normal. Diffusion-weighted imaging is performed. No abnormal hyperintensity is present to suggest an acute i ntracranial infarct or acute ischemic change. There appears be attempted schizencephaly extending from the right sylvian fissure towards the right lateral ventricle. Thick cortex surrounds the fissure site. There is ex vacuo effect and encephalomalacia in the left temporal parietal junction region. Vascular malformation should be considered. Numerous small vessels are evident. There may be a large draining vein in this region as well. An arterial venous malformation should be considered. Scattered sulci appear prominent. The ventricle size appears normal. Following contrast administration suspicious enhancement is not evident. The vessels in the left nellie etal-occipital region could still represent an arteriovenous malformation although the more typical s erpiginous tangle is not apparent. Suspicious enhancement is not identified. IMPRESSIONS: 1. 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 Communication with the ventricle however is not identified. 2. Encephalomalacia left parietal-occipital region. Multiple serpiginous arterial vessels are evident in the large draining vein is present. 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
== END | disposition home or self-care (01) ==
LOC: RADMRIMAIN 13:55
PROVIDERS: ATTEND Psychiatry & Neurology Neurology
DX: G93.89 Other specified disorders of brain (principal)
CPT/HCPCS: 70553; A9581

== ENCOUNTER → 2018-06-23 | Outpatient (CLI) | payer OTHER ==
--- NOTE | 2018-06-27 08:11 | MR ---
EXAMINATION TYPE: MR MRA/MRV head wo con DATE OF EXAM: 06/23/2018 8:37 PM COMPARISON: NONE HISTORY: Dizziness, AVM Three-dimensional [id number]-bq-bgnong intracranial MRA/MRV was performed with multiple intensity projectio n images submitted and source data reviewed at the workstation. The vertebrobasilar system as well as intracranial portions of the internal carotid arteries and thei r major tributaries are patent. I do not see evidence for sizable aneurysm or vascular malformation. On the MRV the visualized dural venous sinuses show normal flow characteristics. No obvious thrombosi s is evident on this scan. No evidence for vascular malformation at this time. IMPRESSION: No significant abnormality appreciated.
== END ==
LOC: RADMRIMAIN 17:30
PROVIDERS: ATTEND Neurological Surgery
DX: Q27.30 Arteriovenous malformation, site unspecified (principal)
CPT/HCPCS: 70544

== ENCOUNTER → 2018-11-17 | Outpatient (CLI) | payer OTHER ==
[2018-11-17 11:51] LABS: Basophils % (A) 1 %; Eosinophils # (A) 0.1 k/uL (0-0.7); Eosinophils % (A) 2 %; HCT 41.4 % (34.0-46.0); Lymphocytes # (A) 1.3 k/uL (1.0-4.8); Lymphocytes % (A) 33 %; MCH 30.5 pg (25.0-35.0); MCHC 31.3 g/dL (31.0-37.0); MCV 97.4 fL (80.0-100.0); Mean Platelet Volume 7.4; Monocytes # (A) 0.3 k/uL (0-1.0); Monocytes % (A) 7 %; Neutrophils # (A) 2.2 k/uL (1.3-7.7); Neutrophils % (A) 55 %; Platelet Count 123 k/uL (150-450); RBC 4.25 m/uL (3.80-5.40); RDW 13.3 % (11.5-15.5); WBC 4.1 k/uL (3.8-10.6)
[2018-11-17 16:25] LABS: Phenytoin (Dilantin) 11.4 ug/mL (10.0-20.0)
[2018-11-17 16:43] LABS: Valproic Acid (Depakene) 50.7 ug/mL (50.0-100.0)
== END ==
LOC: LABWHC1 10:19
PROVIDERS: ATTEND Psychiatry & Neurology Neurology
DX: G40.209 Localization-related (focal) (partial) symptomatic epilepsy and epileptic syndromes with complex partial seizures, not intractable, without status epilepticus (principal); G47.10 Hypersomnia, unspecified
CPT/HCPCS: 36415; 80164; 80185; 84450; 84460; 85025

== ENCOUNTER → 2019-04-12 | Outpatient (CLI) | payer OTHER ==
[2019-04-12 11:17] LABS: Platelet Count 179 k/uL (150-450)
[2019-04-12 17:20] LABS: Valproic Acid (Depakene) 49.4 ug/mL (50.0-100.0)
[2019-04-12 18:47] LABS: Phenytoin (Dilantin) 17.4 ug/mL (10.0-20.0)
== END | disposition home or self-care (01) ==
LOC: LABWHC1 10:16
PROVIDERS: ATTEND Psychiatry & Neurology Neurology
DX: Z51.81 Encounter for therapeutic drug level monitoring (principal); G40.209 Localization-related (focal) (partial) symptomatic epilepsy and epileptic syndromes with complex partial seizures, not intractable, without status epilepticus; Z79.899 Other long term (current) drug therapy
CPT/HCPCS: 36415; 80164; 80184; 80185; 84450; 84460; 85049

== ENCOUNTER → 2019-05-19 | Outpatient (CLI) | payer OTHER ==
--- NOTE | 2019-05-19 11:29 | ECHOF ---
Referral Reason:R06.02 SOB, R60.9 Lower extremity edema MEASUREMENTS -------- HEIGHT: 165.1 cm WEIGHT: 47.6 kg BP: RVIDd: 1.9 cm (< 3.3) IVSd: 1.2 cm (0.6 - 1.1) LVIDd: 3.6 cm (3.9 - 5.3) LVPWd: 1.2 cm (0.6 - 1.1) IVSs: 1.7 cm LVIDs: 1.7 cm LVPWs: 1.7 cm LAESV Index (A-L): 19.64 ml/m Ao Diam: 2.5 cm (2.0 - 3.7) AV Cusp: 2.0 cm (1.5 - 2.6) LA Diam: 3.0 cm (2.7 - 3.8) MV EXCURSION: 22.842 mm (> 18.000) MV EF SLOPE: 100 mm/s (70 - 150) EPSS: 0.3 cm MV E Rico: 0.69 m/s MV DecT: 199 ms MV A Rico: 0.55 m/s MV E/A Ratio: 1.27 RAP: 5.00 mmHg RVSP: 12.14 mmHg TAPSE: 16.27 mm FINDINGS -------- Sinus rhythm. Resting bradycardia (HR<60bpm). This was a technically good study. The left ventricular size is normal. There is mild concentric left ventricular hypertrophy. Overa ll left ventricular systolic function is normal with, an EF between 55 - 60 %. The diastolic fillin g pattern is normal for the age of the patient 13.48. The right ventricle is normal in size. The right ventricular systolic function is normal. Normal LA size by volume 22+/-6 ml/m2. The right atrial size is normal. The aortic valve is trileaflet, and appears structurally normal. No aortic stenosis or regurgitation. The mitral valve leaflets are mildly thickened. Mild mitral regurgitation is present. Cannot excl ude mitral valve prolapse. The tricuspid valve appears structurally normal. Mild tricuspid regurgitation present. Right vent ricular systolic pressure is normal at < 35 mmHg. Trace/mild (physiologic) pulmonic regurgitation. The aortic root size is normal. Normal inferior vena cava with normal inspiratory collapse consistent with estimated right atrial pre ssure of 5 mmHg. There is no pericardial effusion. CONCLUSIONS -------- 1. Sinus rhythm. 2. Resting bradycardia (HR<60bpm). 3. This was a technically good study. 4. The left ventricular size is normal. 5. There is mild concentric left ventricular hypertrophy. 6. Overall left ventricular systolic function is normal with, an EF between 55 - 60 %. 7. The diastolic filling pattern is normal for the age of the patient 13.48 8. The right ventricle is normal in size. 9. The right ventricular systolic function is normal. 10. Normal LA size by volume 22+/-6 ml/m2. 11. The aortic valve is trileaflet, and appears structurally normal. No aortic stenosis or regurgitat ion. 12. The mitral valve leaflets are mildly thickened. 13. Mild mitral regurgitation is present. 14. Cannot exclude mitral valve prolapse. 15. The tricuspid valve appears structurally normal. 16. Mild tricuspid regurgitation present. 17. Right ventricular systolic pressure is normal at < 35 mmHg. 18. Trace/mild (physiologic) pulmonic regurgitation. 19. The aortic root size is normal. 20. Normal inferior vena cava with normal inspiratory collapse consistent with estimated right atrial pressure of 5 mmHg. 21. There is no pericardial effusion. SAND DRIER: Asha Doan RDCS
== END | disposition home or self-care (01) ==
LOC: RADECHMAIN 10:17
PROVIDERS: ATTEND Internal Medicine
DX: I08.1 Rheumatic disorders of both mitral and tricuspid valves (principal)
CPT/HCPCS: 93306

== ENCOUNTER → 2019-05-30 | Outpatient (CLI) | payer OTHER ==
--- NOTE | 2019-05-30 13:55 | NM ---
EXAMINATION TYPE: NM stress cardiolite complete DATE OF EXAM: 05/30/2019 COMPARISON: NONE HISTORY: 63-year-old female with chest pain TECHNIQUE: After the intravenous administration of 9.4 mCi Tc 99m Sestamibi - Cardiolite resting SPE CT images acquired 45 minutes post injection. The patient received 0.4mg Lexiscan, 26.1 mCi Tc 99m Se stamibi - Stress images obtained 30 minutes post injection FINDINGS: Review of stress and rest SPECT images demonstrates very limited findings with prominent attenuation artifact on the stress images and prominent adjacent GI artifact on the rest images. On the gated deo ges, no discrete perfusion abnormality is seen. Also, color maps show no discrete reversibility. Ely d analysis shows normal wall motion with an estimated left ventricular ejection fraction of 79 %. TI D is normal at 0.92. IMPRESSION: Exam limitations as above. No scintigraphic evidence for reversible ischemia.
--- NOTE | 2019-05-31 13:27 | EST ---
EXERCISE STRESS DATE OF SERVICE: 05/30/2019 AGE: 63 SEX: Female HT: 65 WT: 106 PROTOCOL: Lexiscan Cardiolite STAGE: DURATION OF EXERCISE: HEART RATE REST: 57 BLOOD PRESSURE REST: 122/72 MAXIMUM HEART RATE ACHIEVED: 76 MAXIMUM BLOOD PRESSURE: 111/63 85% MPHR: 100% MPHR: METS: INDICATIONS: CLINICAL INFORMATION: Lexiscan nuclear study was performed. Peak heart rate of 76 was achieved. Maximum blood pressure of 111/63 mmHg was noted. Resting EKG shows normal sinus rhythm with incomplete right bundle branch block pattern. No ST-segment depression suggestive of ischemia is noted. The results of the nuclear study will follow. MMODL / IJN: [id number] /
== END | disposition home or self-care (01) ==
LOC: RADNMMAIN 06:50
PROVIDERS: ATTEND Internal Medicine
DX: R07.9 Chest pain, unspecified (principal)
CPT/HCPCS: 93017; 78452; A9500

== ENCOUNTER → 2020-11-08 | Outpatient (CLI) | payer OTHER, MEDICARE ==
[2020-11-08 14:40] LABS: Basophils # (A) 0.04 X 10*3/uL (0.00-0.10); Basophils % (A) 0.9 %; Eosinophils # (A) 0.08 X 10*3/uL (0.04-0.35); Eosinophils % (A) 1.8 %; HCT 44.7 % (37.2-46.3); HGB 14.8 g/dL (12.0-15.0); Lymphocytes # (A) 1.63 X 10*3/uL (0.90-5.00); Lymphocytes % (A) 35.7 %; MCH 31.9 pg (27.0-32.0); MCHC 33.1 g/dL (32.0-37.0); MCV 96.3 fL (80.0-97.0); Mean Platelet Volume 10.6 fL (9.5-12.2); Monocytes # (A) 0.31 X 10*3/uL (0.20-1.00); Monocytes % (A) 6.8 %; Neutrophils % (A) 54.6 %; Platelet Count 154 X 10*3/uL (140-440); RBC 4.64 X 10*6/uL (4.10-5.20); RDW 12.8 % (11.5-14.5); WBC 4.57 X 10*3/uL (4.50-10.00)
[2020-11-08 19:29] LABS: Valproic Acid (Depakene) 50.2 ug/mL (50.0-100.0)
[2020-11-08 20:39] LABS: Phenytoin (Dilantin) 14.3 ug/mL (10.0-20.0)
== END | disposition home or self-care (01) ==
LOC: LABWHC1 10:09
PROVIDERS: ATTEND Psychiatry & Neurology Neurology
DX: G40.209 Localization-related (focal) (partial) symptomatic epilepsy and epileptic syndromes with complex partial seizures, not intractable, without status epilepticus (principal)
CPT/HCPCS: 36415; 80164; 80184; 80185; 84450; 84460; 85025

== ENCOUNTER → 2021-03-04 | Outpatient (CLI) | payer MEDICARE, OTHER ==
[2021-03-04 16:58] LABS: Basophils # (A) 0.03 X 10*3/uL (0.00-0.10); Basophils % (A) 0.7 %; Eosinophils # (A) 0.11 X 10*3/uL (0.04-0.35); Eosinophils % (A) 2.5 %; HCT 43.4 % (37.2-46.3); HGB 14.2 g/dL (12.0-15.0); MCHC 32.7 g/dL (32.0-37.0); MCV 97.7 fL (80.0-97.0); Mean Platelet Volume 10.7 fL (9.5-12.2); Monocytes # (A) 0.28 X 10*3/uL (0.20-1.00); Monocytes % (A) 6.4 %; Neutrophils # (A) 2.55 X 10*3/uL (1.80-7.70); Neutrophils % (A) 58.2 %; Platelet Count 179 X 10*3/uL (140-440); RBC 4.44 X 10*6/uL (4.10-5.20); RDW 12.7 % (11.5-14.5); WBC 4.38 X 10*3/uL (4.50-10.00)
[2021-03-05 07:00] LABS: Phenytoin (Dilantin) 15.1 ug/mL (10.0-20.0)
== END | disposition home or self-care (01) ==
LOC: LABWHC1 09:35
PROVIDERS: ATTEND Psychiatry & Neurology Neurology
DX: G40.209 Localization-related (focal) (partial) symptomatic epilepsy and epileptic syndromes with complex partial seizures, not intractable, without status epilepticus (principal); G47.419 Narcolepsy without cataplexy
CPT/HCPCS: 36415; 80164; 80184; 80185; 84450; 84460; 85025

== ENCOUNTER → 2021-03-19 | Outpatient (CLI) | payer MEDICARE, OTHER ==
--- NOTE | 2021-03-20 09:27 | CONS ---
CONSULTATION DATE OF SERVICE: 03/19/2021. 65-year-old lady has been evaluated in [facility] for symptoms of significant excessive daytime sleepiness and loud snoring. HISTORY OF PRESENT ILLNESS/SLEEP-WAKE EVALUATION: Patient describes symptoms of excessive daytime sleepiness for about 30 years. Presently, it is very significant. Patient may fall asleep while talking to somebody. [place] Sleepiness Scale today is 18. No history of hypnagogic hallucinations, although sleep paralysis or cataplexy. SLEEP SCHEDULE: Patient sleep schedule from midnight until 5 a.m. FALLING ASLEEP: Sometimes he has problems with falling asleep, although no TV in bedroom. DURING SLEEP: She usually sleeps on the side position and on the chair. She wakes up from sleep 3-4 times with nocturia. Positive history of sleep talking. DURING THE DAY/SLEEP WAKE EVALUATION: During the day, patient may take 4 naps as already mentioned above her [place] Sleepiness Scale is 18. PAST MEDICAL HISTORY: Positive for grand mal seizures, last episode 6 months ago, episodes of hypoglycemia, headaches, muscle spasms, including during the sleep. History of atrial fibrillation on and off. MEDICATIONS: Depakote 500 mg 3 times a day. Dilantin 100 mg twice a day. Phenobarbital 30 mg once a day at bedtime. PAST SURGICAL HISTORY: Cholecystectomy, bilateral pleural effusion in 1998. SOCIAL HISTORY: Positive for smoking about half pack a day for 50 years. Presently not any alcohol. FAMILY HISTORY: Positive for cancer, diabetes, stroke. PHYSICAL EXAMINATION: GENERAL: lady without distress. BP 107/45, HR 62, RR 16, height 5 feet 4 inches, weight 109.4, oxygen saturation at room air 98%, and BMI 18.7. Neck 12-1/4 inch. HEENT: PERRLA, EOMI. Oropharynx low position of soft palate. Mallampati 3. NECK: Supple, no JVD. Thyroid is not palpable. LUNGS: Clear to percussion and to auscultation. Good air exchange. No wheezing or rhonchi. HEART: S1, S2 regular. No murmurs, gallops, or rubs. ABDOMEN: Soft and nontender. Bowel sounds are present. No organomegaly appreciated. EXTREMITIES: No clubbing or cyanosis. MATH AND SCIENCE DIVISION CHAIR: Awake, alert, and oriented X3. Cranial nerves 2 to 7 intact. There is no fasciculation or atrophy noted. No focal deficits observed. IMPRESSION: 1. Extreme excessive daytime sleepiness with [place] Sleepiness Scale of 18. The patient may fall asleep while talking to somebody and take takes 4 naps a day. Differential diagnosis includes narcolepsy without cataplexy. 2. Snoring, multiple awakenings from sleep with nocturia, low position of soft palate, obstructive sleep apnea-hypopnea syndrome. 3. History of grand mal seizures, last episode 6 months ago. 4. History of atrial fibrillation. 5. Leg cramps. 6. Back pain. 7. Smoking half pack a day for 50 years. 8. Status post cholecystectomy. 9. History of bilateral pleural effusion and possible pericarditis many years ago according to patient. PLAN: 1. Polysomnography for evaluation of patient's breathing during sleep. 2. CPAP/BiPAP titration if sleep study confirms obstructive sleep apnea-hypopnea syndrome. 3. Preferable position during sleep on the side. 4. No driving if patient feels any sleepiness. 5. I will see patient for follow up visit to explain results of testing and following plan. 6. Multiple sleep latency test if the sleep study will be negative for obstructive sleep apnea-hypopnea syndrome. Thank you very much for referring this patient for consultation. Sincerely, Dario Acuna MD, PhD, FAASM Diplomat of [employer] Sleep Medicine Board of [employer] [employer] [facility] [place] MMODL / RADHAN: [id number] /
== END ==
CPT/HCPCS: 99211

== ENCOUNTER → 2021-05-27 | Outpatient (CLI) | payer MEDICARE, OTHER ==
--- NOTE | 2021-05-27 09:57 | XR ---
EXAMINATION TYPE: XR lumbosacral spine min 4V DATE OF EXAM: 05/27/2021 COMPARISON: None HISTORY: Low back pain TECHNIQUE: 5 view lumbar spine FINDINGS: There are 5 lumbar-type vertebral bodies. Pedicles are intact. No spondylolytic defects are evident. There is disc space narrowing at L5-S1. Remaining disc heights appear preserved. Vertebral body heights are preserved. Minimal spondylosis is present. IMPRESSION: 1. Degenerative disc change L5-S1
== END | disposition home or self-care (01) ==
LOC: RADXRMAIN 09:17
PROVIDERS: ATTEND Psychiatry & Neurology Neurology
DX: M51.37 Other intervertebral disc degeneration, lumbosacral region (principal)
CPT/HCPCS: 72110

== ENCOUNTER → 2021-09-19 | Outpatient (CLI) | payer MEDICARE, OTHER ==
--- NOTE | 2021-09-19 15:11 | XR ---
EXAMINATION TYPE: XR Hip Complete RT, 2 views DATE OF EXAM: 09/19/2021 Comparison: None Clinical History: 66-year-old female PAIN IN RIGHT HIP M25.551 Findings: Mild degenerative change at the right SI joint. Mild collar osteophyte of the femoral head neck junct ion especially anteriorly. Hip joint spaces relatively maintained. No acute fracture, subluxation, or dislocation. Impression: Mild degenerative spurring at the right hip. No acute osseous abnormality seen.
== END | disposition home or self-care (01) ==
LOC: RADXRMAIN 12:30
PROVIDERS: ATTEND Psychiatry & Neurology Neurology
DX: M16.11 Unilateral primary osteoarthritis, right hip (principal)
CPT/HCPCS: 73502

== ENCOUNTER → 2022-01-29 | Outpatient (CLI) | payer MEDICARE, OTHER ==
[2022-01-29 14:57] LABS: Basophils # (A) 0.02 X 10*3/uL (0.00-0.10); Basophils % (A) 0.5 %; Eosinophils # (A) 0.12 X 10*3/uL (0.04-0.35); Eosinophils % (A) 2.7 %; HGB 13.1 g/dL (12.0-15.0); Immature Grans, Automated 0 %; Lymphocytes # (A) 1.57 X 10*3/uL (0.90-5.00); Lymphocytes % (A) 35.4 %; MCH 31.3 pg (27.0-32.0); MCV 97.9 fL (80.0-97.0); Mean Platelet Volume 10.7 fL (9.5-12.2); Monocytes # (A) 0.41 X 10*3/uL (0.20-1.00); Monocytes % (A) 9.2 %; NRBC Per 100 WBC 0 /100 WBCS (0.0-0.0); Neutrophils # (A) 2.32 X 10*3/uL (1.80-7.70); Neutrophils % (A) 52.2 %; Platelet Count 192 X 10*3/uL (140-440); RBC 4.19 X 10*6/uL (4.10-5.20); RDW 13.2 % (11.5-14.5); WBC 4.44 X 10*3/uL (4.50-10.00)
[2022-01-29 19:06] LABS: Phenytoin (Dilantin) 14.1 ug/mL (10.0-20.0); Valproic Acid (Depakene) 36.2 ug/mL (50.0-100.0)
== END | disposition home or self-care (01) ==
LOC: LABWHC1 10:09
PROVIDERS: ATTEND Psychiatry & Neurology Neurology
DX: G40.209 Localization-related (focal) (partial) symptomatic epilepsy and epileptic syndromes with complex partial seizures, not intractable, without status epilepticus (principal)
CPT/HCPCS: 36415; 80164; 80184; 80185; 85025

== ENCOUNTER → 2022-05-06 | Outpatient (CLI) | payer MEDICARE, OTHER ==
[2022-05-06 16:16] LABS: Basophils # (A) 0.03 X 10*3/uL (0.00-0.10); Basophils % (A) 0.6 %; HCT 40.4 % (37.2-46.3); HGB 13.1 g/dL (12.0-15.0); Immature Grans, Automated 0.2 %; Lymphocytes # (A) 1.44 X 10*3/uL (0.90-5.00); Lymphocytes % (A) 29.5 %; MCH 31.2 pg (27.0-32.0); MCHC 32.4 g/dL (32.0-37.0); MCV 96.2 fL (80.0-97.0); Mean Platelet Volume 10.6 fL (9.5-12.2); Monocytes # (A) 0.27 X 10*3/uL (0.20-1.00); Monocytes % (A) 5.5 %; NRBC Per 100 WBC 0 /100 WBCS (0.0-0.0); Neutrophils # (A) 3.03 X 10*3/uL (1.80-7.70); Neutrophils % (A) 62.2 %; Platelet Count 140 X 10*3/uL (140-440); WBC 4.88 X 10*3/uL (4.50-10.00)
[2022-05-06 17:49] LABS: Phenytoin (Dilantin) 15.6 ug/mL (10.0-20.0)
== END | disposition home or self-care (01) ==
LOC: LABWHC1 10:05
PROVIDERS: ATTEND Psychiatry & Neurology Neurology
DX: G40.209 Localization-related (focal) (partial) symptomatic epilepsy and epileptic syndromes with complex partial seizures, not intractable, without status epilepticus (principal)
CPT/HCPCS: 36415; 80184; 80185; 84450; 84460; 85025

== ENCOUNTER 2022-05-07 18:12 | Emergency (ER) | payer MEDICARE, OTHER ==
[2022-05-07 20:16] VITALS: BP 111/55; PULSE 55; RESP 16; TEMP 98
== END 2022-05-07 20:31 | disposition left against medical advice (07) ==
LOC: EC 18:12
DX: Z53.21 Procedure and treatment not carried out due to patient leaving prior to being seen by health care provider (principal)
CPT/HCPCS: 36415; 80164; 99499

== ENCOUNTER → 2023-02-05 | Outpatient (CLI) | payer MEDICARE, OTHER ==
[2023-02-05 15:40] LABS: Basophils # (A) 0.03 X 10*3/uL (0.00-0.10); Basophils % (A) 0.7 %; Eosinophils # (A) 0.12 X 10*3/uL (0.04-0.35); Eosinophils % (A) 2.6 %; HCT 40.8 % (37.2-46.3); Lymphocytes # (A) 1.64 X 10*3/uL (0.90-5.00); MCHC 31.9 d/dL (32.0-37.0); MCV 97.4 FL (80.0-97.0); Mean Platelet Volume 10.5 FL (9.5-12.2); Monocytes # (A) 0.32 X 10*3/uL (0.20-1.00); NRBC Per 100 WBC 0 X 10*3/uL (0.00-0.01); Neutrophils # (A) 2.43 X 10*3/uL (1.80-7.70); Neutrophils % (A) 53.5 %; Platelet Count 152 X 10*3/uL (140-440); RBC 4.19 X 10*6/uL (4.10-5.20); RDW 13.1 % (11.5-14.5); WBC 4.55 X 10*3/uL (4.50-10.00)
[2023-02-05 17:39] LABS: Valproic Acid (Depakene) 67.6 UG/ML (50.0-100.0)
== END | disposition home or self-care (01) ==
LOC: LABWHC1 09:39
PROVIDERS: ATTEND Psychiatry & Neurology Neurology
DX: G40.209 Localization-related (focal) (partial) symptomatic epilepsy and epileptic syndromes with complex partial seizures, not intractable, without status epilepticus (principal)
CPT/HCPCS: 36415; 80164; 80184; 80185; 84450; 84460; 85025

== ENCOUNTER → 2023-07-13 | Outpatient (CLI) | payer MEDICARE, OTHER ==
--- NOTE | 2023-07-16 15:34 | MR ---
EXAMINATION TYPE: MR knee LT wo con DATE OF EXAM: 07/13/2023 COMPARISON: Outside radiograph 07/01/2023 HISTORY: 67-year-old female M25.562, Pain left knee, fall TECHNIQUE: Multiplanar, multisequence imaging of the left knee is performed without IV contrast. FINDINGS: The ACL and PCL are intact. Prominent edema on either side of the intact MCL fibers. There is additional intermediate signal within both the popliteus tendon and femoral attachment of th e LCL proper. There is a small peripherally oriented oblique tear at the junction of the posterior horn and body of the medial meniscus contacting the tibial articular surface. Mild superficial irregular cartilage loss throughout the medial compartment, more moderate focal cart ilage loss mid weightbearing aspect of the medial femoral condyle with reactive subchondral marrow si gnal changes. The lateral meniscus appears intact and overall lateral compartment articular cartilage is maintained . Patellofemoral compartment appears intact. Extensor mechanism is intact. There is a large joint effusion and trace leaking Garcia's cyst. Prominent deep soft tissue edema likely extravasated joint fluid. Scattered muscular edema especially along the lateral margin of the quadriceps musculature as well as the gastrocnemius musculature and mild within the popliteus muscle. Generalized subcutaneous soft tissue swelling also present. Patchy red marrow hyperplasia. Normal pop liteal artery anatomy. Mild age-related muscle volume loss. IMPRESSION: 1. Grade 1 MCL sprain. 2. Popliteus tendinosis/contusion and grade 1 versus chronic sprain of the LCL proper near the femora l attachment. 3. Small peripherally located oblique tear at the junction of the posterior horn and body of the medi al meniscus. Moderate focal osteoarthritic change along the mid weightbearing aspect of the medial co mpartment. 4. Large joint effusion with trace leaking Garcia's cyst. Deep soft tissue edema likely extravasated j oint fluid. 5. Scattered muscular edema especially along the lateral quadriceps musculature and gastrocnemius cou ld be edema reactive to altered biomechanics or could reflect muscle strains.
== END | disposition home or self-care (01) ==
LOC: RADMRIMAIN 13:31
PROVIDERS: ATTEND Orthopaedic Surgery
DX: M17.12 Unilateral primary osteoarthritis, left knee (principal); M67.864 Other specified disorders of tendon, left knee; M23.322 Other meniscus derangements, posterior horn of medial meniscus, left knee; M23.204 Derangement of unspecified medial meniscus due to old tear or injury, left knee; M25.462 Effusion, left knee; R60.0 Localized edema; W19.XXXA Unspecified fall, initial encounter